=== PATIENT | male | born 1960 | race Caucasian/White ===

== ENCOUNTER 2019-06-14 15:00 | Emergency (ER) | payer BC, OTHER ==
[~2019-06-14] VITALS: Ht 172 cm; Wt 104.3 kg
[2019-06-14] MEDS ORDERED: NS IV 1000 ML 1,000 ML IV SCH (15:30)
[2019-06-14] MEDS ORDERED: meTOprolol 5 MG/5 ML (LOPRESSOR) VIAL IV ONE (15:30)
--- NOTE | 2019-06-14 15:34 | ED GI ---
General Chief Complaint: Abdominal/GI Problems Stated Complaint: GROIN PAIN Nursing Triage Note: has pain in L testicle that goes up into the L side of his groin Sepsis Screen: No Definite Risk Source of Information: Patient Exam Limitations: No Limitations History of Present Illness Date Seen by Provider: Jun 14, 2019 Time Seen by Provider: 15:33 Initial Comments To ER with pain in left testicle he goes up the left side of his groin since Tuesday after moving some equipment. He is concerned he may have a hernia. No dysuria. No chest pain no shortness of breath no fever no chills, hasn't seen a doctor in "20 years". His heart rate is 157 narrow complex on arrival. Timing/Duration: 1-2 Days Severity/Quality: Moderate Location: [facility] Radiation: No Radiation Activities at Onset: None Associated Symptoms: Denies Symptoms Allergies and Home Medications Allergies Coded Allergies: No Known Drug Allergies (Unverified , 06/14/19) Patient Home Medication List Home Medication List Reviewed: Yes Review of Systems Review of Systems Constitutional: see HPI EENTM: No Symptoms Reported Respiratory: No Symptoms Reported Cardiovascular: No Symptoms Reported Gastrointestinal: See HPI, Abdominal Pain; Denies Constipated, Denies Diarrhea, Denies Nausea Musculoskeletal: no symptoms reported Skin: no symptoms reported Psychiatric/Neurological: No Symptoms Reported Endocrine: No Symptoms Reported Hematologic/Lymphatic: No Symptoms Reported Past Qraunmb-Cxcejq-Vgqbqh Hx Patient Social History Alcohol Use: Denies Use Recreational Drug Use: No 2nd Hand Smoke Exposure: No Recent Foreign Travel: No Contact w/Someone Who Travel: No Recent Infectious Disease Expo: No Recent Hopitalizations: No Immunizations Up To Date Tetanus Booster (TDap): Unknown Seasonal Allergies Seasonal Allergies: No Past Medical History Surgeries: No Respiratory: No Cardiac: No Neurological: No Genitourinary: No Gastrointestinal: No Musculoskeletal: No Endocrine: No HEENT: No Cancer: No Psychosocial: No Integumentary: No Blood Disorders: No Physical Exam Vital Signs Vital Signs - First Documented 06/14/19 15:10 Temp 36.9 Pulse 154 Resp 18 B/P (MAP) 158/102 (120) Capillary Refill : Less Than 3 Seconds Height/Weight/BMI Height: '" Weight: lbs. oz. kg; 35.00 BMI Method: General Appearance: WD/WN, no apparent distress, other (no distress alert and oriented talks in full sentences pleasant) HEENT: PERRL/EOMI, normal ENT inspection Respiratory: normal breath sounds, no respiratory distress, no accessory muscle use Cardiovascular: tachycardia Gastrointestinal: normal bowel sounds, non tender, soft Extremities: normal range of motion, non-tender Neurologic/Psychiatric: alert, normal mood/affect, oriented x 3 Skin: normal color, warm/dry Progress/Results/Core Measures Results/Orders Lab Results Laboratory Tests Test 06/14/19 15:25 06/14/19 15:28 Range/Units White Blood Count 10.2 4.3-11.0 10^3/uL Red Blood Count 5.69 4.35-5.85 10^6/uL Hemoglobin 17.4 13.3-17.7 G/DL Hematocrit 50 40-54 % Mean Corpuscular Volume 88 80-99 FL Mean Corpuscular Hemoglobin 31 25-34 PG Mean Corpuscular Hemoglobin Concent 35 32-36 G/DL Red Cell Distribution Width 13.7 10.0-14.5 % Platelet Count 222 130-400 10^3/uL Mean Platelet Volume 9.9 7.4-10.4 FL Neutrophils (%) (Auto) 68 42-75 % Lymphocytes (%) (Auto) 22 12-44 % Monocytes (%) (Auto) 9 0-12 % Eosinophils (%) (Auto) 1 0-10 % Basophils (%) (Auto) 0 0-10 % Neutrophils # (Auto) 6.9 1.8-7.8 X 10^3 Lymphocytes # (Auto) 2.2 1.0-4.0 X 10^3 Monocytes # (Auto) 0.9 0.0-1.0 X 10^3 Eosinophils # (Auto) 0.1 0.0-0.3 10^3/uL Basophils # (Auto) 0.0 0.0-0.1 10^3/uL Sodium Level 139 135-145 MMOL/L Potassium Level 4.0 3.6-5.0 MMOL/L Chloride Level 104 98-107 MMOL/L Carbon Dioxide Level 24 21-32 MMOL/L Anion Gap 11 5-14 MMOL/L Blood Urea Nitrogen 14 7-18 MG/DL Creatinine 0.96 0.60-1.30 MG/DL Estimat Glomerular Filtration Rate > 60 BUN/Creatinine Ratio 15 Glucose Level 109 H 70-105 MG/DL Calcium Level 9.8 8.5-10.1 MG/DL Corrected Calcium 8.5-10.1 MG/DL Magnesium Level 1.9 1.6-2.4 MG/DL Total Bilirubin 1.2 H 0.1-1.0 MG/DL Aspartate Amino Transf (AST/SGOT) 46 H 5-34 U/L Alanine Aminotransferase (ALT/SGPT) 48 0-55 U/L Alkaline Phosphatase 69 40-136 U/L Troponin I < 0.028 <0.028 NG/ML B-Type Natriuretic Peptide 13.6 <100.0 PG/ML Total Protein 7.8 6.4-8.2 GM/DL Albumin 4.8 H 3.2-4.5 GM/DL Urine Color YELLOW Urine Clarity CLEAR Urine pH 5.5 5-9 Urine Specific [place] >=1.030 1.016-1.022 Urine Protein NEGATIVE NEGATIVE Urine Glucose (UA) NEGATIVE NEGATIVE Urine Ketones NEGATIVE NEGATIVE Urine Nitrite NEGATIVE NEGATIVE Urine Bilirubin NEGATIVE NEGATIVE Urine Urobilinogen 0.2 < = 1.0 MG/DL Urine Leukocyte Esterase NEGATIVE NEGATIVE Urine RBC (Auto) NEGATIVE NEGATIVE Urine RBC NONE /HPF Urine WBC 0-2 /HPF Urine Crystals PRESENT H /LPF Urine Amorphous Sediment FEW JENARO URATES H /LPF Urine Bacteria TRACE /HPF Urine Casts PRESENT /LPF Urine Hyaline Casts 0-2 H /LPF Urine Mucus NEGATIVE /LPF Urine Culture Indicated NO My Orders Orders - CIELO VILLANUEVA APRN Ua Culture If Indicated (06/14/19 15:22) Us Scrotum (Testicle) [id number] (06/14/19 15:22) Cbc With Automated Diff (06/14/19 15:29) Comprehensive Metabolic Panel (06/14/19 15:29) BNP (06/14/19 15:29) Troponin I (06/14/19 15:29) Magnesium (06/14/19 15:29) Ct Angio Chest W (06/14/19 15:29) Ct Abd/Pelvis Wo(Kidney Stone) (06/14/19 15:29) Metoprolol Tartrate Injection (Lopressor (06/14/19 15:30) Ns Iv 1000 Ml (Sodium Chloride 0.9%) (06/14/19 15:30) Ekg Tracing (06/14/19 15:31) Ekg Tracing (06/14/19 16:02) Iohexol Injection (Omnipaque 350 Mg/Ml 1 (06/14/19 16:15) Received Contrast (Hold Metformin- Contr (06/14/19 16:15) Sodium Chloride Flush (Catheter Flush Sy (06/14/19 16:15) Ns (Ivpb) (Sodium Chloride 0.9% Ivpb Bag (06/14/19 16:15) Medications Given in ED Current Medications Medications Dose Ordered Sig/Hector Route Start Time Stop Time Status Last Admin Dose Admin Iohexol 100 ml ONCE ONCE IV 06/14/19 16:15 06/14/19 16:16 DC 06/14/19 16:43 83 ML Metoprolol Tartrate 5 mg ONCE ONCE IV 06/14/19 15:30 06/14/19 15:32 DC 06/14/19 15:36 5 MG Sodium Chloride 10 ml NEEDED PRN IV 06/14/19 16:15 06/14/19 16:43 10 ML Sodium Chloride 100 ml ONCE ONCE IV 06/14/19 16:15 06/14/19 16:16 DC 06/14/19 16:43 80 ML Vital Signs/I&O 06/14/19 15:10 Temp 36.9 Pulse 154 Resp 18 B/P (MAP) 158/102 (120) Blood Pressure Mean: 120 Diagnostic Imaging Diagonstic Imaging: Xray Plain Films/CT/US/NM/MRI: chest Comments NAME: ARCHIE SUE [facility] REC#: [id number] PT STATUS: REG ER : 1960 PHYSICIAN: CIELO VILLANUEVA APRN ADMIT DATE: 06/14/19/ER Draft Date of Exam:06/14/19 US SCROTUM (Testicle) [id number] PROCEDURE: US Scrotum. TECHNIQUE: Multiple real-time grayscale images were obtained over the scrotum in various projections bilaterally. INDICATION: Testicular pain. COMPARISON: None. FINDINGS: Normal echogenicity and flow by color Doppler at both testicles. No mass or fluid collections. The right testicle measures 3.9 x 2.0 x 2.9 cm. The left testicle measures 4.1 x 1.8 x 2.5 cm. No hydrocele or varicoceles. The epididymis is unremarkable bilaterally. IMPRESSION: Unremarkable testicular ultrasound. Dictated on workstation # [id number] Dict: 06/14/19 1638 Trans: 06/14/198 [facility] [id number] Interpreted by: HYUN ALEGRE MD Electronically signed by: NAME: ARCHIE SUE [facility] REC#: [id number] PT STATUS: REG ER : 1960 PHYSICIAN: CIELO VILLANUEVA APRN ADMIT DATE: 06/14/19/ER Draft Date of Exam:06/14/19 CT ANGIO CHEST W EXAMINATION: CT angiography of the chest. TECHNIQUE: Contrast enhanced thin section helical images were obtained through the chest with intravenous contrast timed for the optimal opacification of the arterial structures per CTA protocol. Post-processing, reconstructions and interpretation of angiographic images of the vessels was performed. 3D MIP reconstructions were performed and reviewed. All CT scans use one or more of the following dose optimizing techniques: automated exposure control, MA and/or KvP adjustment based on a patient size and exam type, or iterative reconstruction. HISTORY: Tachycardia. COMPARISON: None available. FINDINGS: There is no pulmonary embolism. There is no edema or pneumonia. No pleural effusion. No pneumothorax. No suspicious nodules. Hazy appearance to the lungs is related to expiratory phase of imaging. Heart size is normal. There are mild coronary artery calcifications. No pericardial effusion. Aorta is normal in caliber. There is no axillary or supraclavicular lymphadenopathy. There is no mediastinal lymphadenopathy. Limited views of the upper abdomen are unremarkable. There are no suspicious osseus lesions. IMPRESSION: 1. No pulmonary embolism. Dictated on workstation # [id number] Dict: 06/14/19 1647 Trans: 06/14/19 1653 [facility] [id number] Interpreted by: ANIA MIKE MD Electronically signed by: NAME: ARCHIE SUE [facility] REC#: [id number] PT STATUS: REG ER : 1960 PHYSICIAN: CIELO VILLANUEVA APRN ADMIT DATE: 06/14/19/ER Draft Date of Exam:06/14/19 CT ABD/PELVIS WO(KIDNEY STONE) EXAMINATION: CT Abdomen Pelvis without contrast. TECHNIQUE: Multiple contiguous axial images were obtained through the abdomen and pelvis without the use of intravenous contrast. All CT scans use one or more of the following dose optimizing techniques: automated exposure control, MA and/or KvP adjustment based on a patient size and exam type, or iterative reconstruction. HISTORY: Left-sided groin pain COMPARISON: None available. FINDINGS: Limited views of the lower thorax are unremarkable. The liver is normal without focal lesion. There is no biliary ductal dilation. Gallbladder is normal. Pancreas is normal. Spleen is normal. Adrenal glands are normal. The kidneys are normal. There is no hydronephrosis. Urinary bladder is normal. No renal or ureteral stones are seen. There are phleboliths in the pelvis. There is some mild nonspecific retroperitoneal stranding. There is a fat-containing left inguinal hernia. There is mild stranding within the hernia. There is a fat-containing umbilical hernia as well. Visualized bowel is normal in caliber without obstruction or inflammation. No free fluid or air. No abdominal or pelvic lymphadenopathy. Aorta is normal in caliber without aneurysm. There are no suspicious osseus lesions. IMPRESSION: 1. No renal or ureteral stones. 2. Fat-containing left inguinal hernia with stranding of the herniated fat which may represent strangulation. Dictated on workstation # [id number] Dict: 06/14/19 1650 Trans: 06/14/19 165 [facility] [id number] Interpreted by: ANIA MIKE MD Electronically signed by: Departure Communication (Admissions) Family Conversation 1700- spoke with Dr. Alvarado regarding tachycardia, patient has remained normal sinus after the Lopressor, he believe this to be either a atrial flutter or reentrant tachycardia. He would recommend low-dose metoprolol, follow-up in the clinic with him when possible though they are not seeing any outpatients currently because of COVID concerns. I'll put him on Toprol-XL. I also spoke with Dr. Hardy about the findings on CT of fat-containing inguinal hernia with question was granulation. Unlikely strangulation as he is minimally tender to palpation left inguinal region. No specific treatment other than pain control, Dr. Hardy will follow up in about 4-6 weeks with the patient in the clinic. He should return sooner for any concerning symptoms like fevers or intolerable pain or failure to have a bowel movement or passed gas. Patient had a narrow complex tachycardia rate of 157 upon arrival to the room. He denied shortness of breath or chest pain. He then stood up to provide a urine sample and heart rate dropped to 105 sinus without ectopy. He then jumped back up to 165 narrow complex regular. He is hypertensive, 5 mg of Lopressor was given IV, he converted down to heart rate of 85 sinus no ectopy. Impression Primary Impression: fat-containing inguinal hernia Additional Impression: Tachycardia Disposition: 01 HOME, SELF-CARE Condition: Stable Departure-Patient Inst. Decision time for Depature: 17:02 Referrals: NAREN HARDY BASHAR J MD Patient Instructions: Groin Hernia (DC) Add. Discharge Instructions: 1. Your hernia contains only fat but it is inflamed because of the recent herniation likely when he was carrying a heavy object last week. Return to ER for any intolerable pain, fevers, unable to have bowel movement or other concerns. Call Dr. Alvarado for an appointment for follow-up whenever they can see you which may be several weeks. In the meantime take the medication as directed. All discharge instructions reviewed with patient and/or family. Voiced understanding. Scripts Docusate Sodium (Colace) 100 Mg Capsule 100 MG PO DAILY, #14 CAP Prov: CIELO VILLANUEVA APRN 06/14/19 Metoprolol Succinate (Toprol Xl) 50 Mg Tab.er.24h 50 MG PO DAILY, #30 TAB 2 Refills Prov: CIELO VILLANEUVA APRN 06/14/19 CIELO VILLANUEVA APRN Jun 14, 2019 15:34
[2019-06-14 15:35] LABS: BASOPHILS % (AUTO) 0 % (0-10); EOSINOPHILS # (AUTO) 0.1 10^3/uL (0.0-0.3); EOSINOPHILS % (AUTO) 1 % (0-10); HEMATOCRIT 50 % (40-54); HEMOGLOBIN 17.4 G/DL (13.3-17.7); LYMPHOCYTES # (AUTO) 2.2 X 10^3 (1.0-4.0); LYMPHOCYTES % (AUTO) 22 % (12-44); MEAN CORPUSCULAR HEMOGLOBIN 31 PG (25-34); MEAN CORPUSCULAR HGB CONC 35 G/DL (32-36); MEAN CORPUSCULAR VOLUME 88 FL (80-99); MEAN PLATELET VOLUME 9.9 FL (7.4-10.4); MONOCYTES # (AUTO) 0.9 X 10^3 (0.0-1.0); MONOCYTES % (AUTO) 9 % (0-12); NEUTROPHILS # (AUTO) 6.9 X 10^3 (1.8-7.8); NEUTROPHILS % (AUTO) 68 % (42-75); PLATELET COUNT 222 10^3/uL (130-400); RED CELL DISTRIBUTION WIDTH 13.7 % (10.0-14.5); WHITE BLOOD COUNT 10.2 10^3/uL (4.3-11.0)
[2019-06-14 15:35] LABS: BILIRUBIN,URINE NEGATIVE (NEGATIVE); CLARITY,URINE CLEAR; COLOR,URINE YELLOW; GLUCOSE, URINE (UA) NEGATIVE (NEGATIVE); KETONES,URINE NEGATIVE (NEGATIVE); LEUKOCYTE ESTERASE ,URINE NEGATIVE (NEGATIVE); NITRITE,URINE NEGATIVE (NEGATIVE); PH,URINE 5.5 (5-9); PROTEIN,URINE NEGATIVE (NEGATIVE)
[2019-06-14 15:51] LABS: ALANINE AMINOTRANSFERASE 48 U/L (0-55); ALBUMIN 4.8 GM/DL (3.2-4.5); ALKALINE PHOSPHATASE 69 U/L (40-136); BILIRUBIN,TOTAL 1.2 MG/DL (0.1-1.0); BUN/CREATININE RATIO 15; CALCIUM 9.8 MG/DL (8.5-10.1); CARBON DIOXIDE 24 MMOL/L (21-32); CHLORIDE 104 MMOL/L (98-107); CREATININE SERUM 0.96 MG/DL (0.60-1.30); GFR ESTIMATED > 60; GLUCOSE 109 MG/DL (70-105); MAGNESIUM 1.9 MG/DL (1.6-2.4); SODIUM 139 MMOL/L (135-145); TOTAL PROTEIN 7.8 GM/DL (6.4-8.2)
[2019-06-14 16:03] LABS: AMORPHOUS SEDIMENT,UR FEW AMOR URATES /LPF; BACTERIA,URINE TRACE /HPF; WBC,URINE 0-2 /HPF
[2019-06-14 16:04] LABS: HYALINE CASTS, URINE 0-2 /LPF
[2019-06-14] MEDS ORDERED: HOLD METFORMIN - RECEIVED CONTRAST 20 ML VIAL IV SCH (16:15)
[2019-06-14] MEDS ORDERED: CATHETER FLUSH 10 ML SYR IV PRN (16:15)
[2019-06-14] MEDS ORDERED: NS 100 ML (IVPB) BAG IV ONE (16:15)
[2019-06-14] MEDS ORDERED: IOHEXOL 350 MG/ML 100 ML (OMNIPAQUE 350) VIAL IV ONE (16:15)
--- NOTE | 2019-06-14 16:48 | Diagnostic Imaging Report ---
PROCEDURE: US Scrotum. TECHNIQUE: Multiple real-time grayscale images were obtained over the scrotum in various projections bilaterally. INDICATION: Testicular pain. COMPARISON: None. FINDINGS: Normal echogenicity and flow by color Doppler at both testicles. No mass or fluid collections. The right testicle measures 3.9 x 2.0 x 2.9 cm. The left testicle measures 4.1 x 1.8 x 2.5 cm. No hydrocele or varicoceles. The epididymis is unremarkable bilaterally. IMPRESSION: Unremarkable testicular ultrasound. Dictated by: Dictated on workstation # [id number]
--- NOTE | 2019-06-14 16:53 | Diagnostic Imaging Report ---
EXAMINATION: CT angiography of the chest. TECHNIQUE: Contrast enhanced thin section helical images were obtained through the chest with intravenous contrast timed for the optimal opacification of the arterial structures per CTA protocol. Post-processing, reconstructions and interpretation of angiographic images of the vessels was performed. 3D MIP reconstructions were performed and reviewed. All CT scans use one or more of the following dose optimizing techniques: automated exposure control, MA and/or KvP adjustment based on a patient size and exam type, or iterative reconstruction. HISTORY: Tachycardia. COMPARISON: None available. FINDINGS: There is no pulmonary embolism. There is no edema or pneumonia. No pleural effusion. No pneumothorax. No suspicious nodules. Hazy appearance to the lungs is related to expiratory phase of imaging. Heart size is normal. There are mild coronary artery calcifications. No pericardial effusion. Aorta is normal in caliber. There is no axillary or supraclavicular lymphadenopathy. There is no mediastinal lymphadenopathy. Limited views of the upper abdomen are unremarkable. There are no suspicious osseus lesions. IMPRESSION: 1. No pulmonary embolism. Dictated by: Dictated on workstation # [id number]
--- NOTE | 2019-06-14 16:54 | Diagnostic Imaging Report ---
EXAMINATION: CT Abdomen Pelvis without contrast. TECHNIQUE: Multiple contiguous axial images were obtained through the abdomen and pelvis without the use of intravenous contrast. All CT scans use one or more of the following dose optimizing techniques: automated exposure control, MA and/or KvP adjustment based on a patient size and exam type, or iterative reconstruction. HISTORY: Left-sided groin pain COMPARISON: None available. FINDINGS: Limited views of the lower thorax are unremarkable. The liver is normal without focal lesion. There is no biliary ductal dilation. Gallbladder is normal. Pancreas is normal. Spleen is normal. Adrenal glands are normal. The kidneys are normal. There is no hydronephrosis. Urinary bladder is normal. No renal or ureteral stones are seen. There are phleboliths in the pelvis. There is some mild nonspecific retroperitoneal stranding. There is a fat-containing left inguinal hernia. There is mild stranding within the hernia. There is a fat-containing umbilical hernia as well. Visualized bowel is normal in caliber without obstruction or inflammation. No free fluid or air. No abdominal or pelvic lymphadenopathy. Aorta is normal in caliber without aneurysm. There are no suspicious osseus lesions. IMPRESSION: 1. No renal or ureteral stones. 2. Fat-containing left inguinal hernia with stranding of the herniated fat which may represent strangulation. Dictated by: Dictated on workstation # [id number]
[2019-06-14] MEDS ORDERED: HYDR-4226 PO (17:14)
[2019-06-14] MEDS ORDERED: METO-352 PO (17:14)
[2019-06-14] MEDS ORDERED: DOCU-143 PO (17:14)
[2019-06-14 17:25] VITALS: BP 153/115
--- OUTSIDE RECORDS SUMMARY | 2019-06-14 17:59 | XMS REPORT ---
Author Author Golden BENAVIDES [facility] eClinicalWorks Address Unknown Phone Unavailable Care Team Providers Care Giver Name Role Phone RUPAL BENAVIDES CP Unavailable Allergies, Adverse Reactions, Alerts Substance Reaction Event Type N.K.D.A. Info Not Available Non Drug Allergy Problems Problem Type Condition Code Onset Dates Condition Statu s Assessment Physical exam Z00.00 Active Assessment Encounter for PPD test Z11.1 Activ e Medications No Known Medications Procedures Procedure Coding System Code Date COMPREHEN METABOLIC PANEL CPT-4 76608 Feb LIPID PANEL CPT-4 88441 Mar 18, 2015 COMPLETE CBC W/AUTO DIFF WBC CPT-4 13451 Mar 18, 2015 Preventive Care New Pt. Age 40-64 CPT-4 16758 Mar 18, 2015 ASSAY THYROID STIM HORMONE CPT-4 99201 Feb 262014 VENIPUNCT, ROUTINE* CPT-4 85398 Mar 18, 2015 Vital Signs Date/Time: Mar 18, 2015 Temperature 98.5 F Weight 244.3 lbs Height 70.1 in BMI 34.95 Index Blood Pressure Diastolic 84 mmHg Blood Pressure Systolic 138 mmHg Cardiac Monitoring Heart Rate 88 bpm Results Name Result Date Reference Range Unit Abnormali ty Flag CBC ----Lymphs 31 88358351 % ----Neutrophils 57 57345535 % ----Baso (Absolute) 0.0 20150318 0.0-0.2 x10E3/uL ----Hemoglobin 17.2 20150318 12.6-17.7 g/dL ----Eos (Absolute) 0.1 00932499 0.0-0.4 x10E3/uL ----Hematocrit 49.7 20150318 37.5-51.0 % ----Monocytes(Absolute) 0.7 44709879 0.1-0.9 x10E3/uL ----MCV 89 14395579 79-97 fL ----Lymphs (Absolute) 1.9 40841032 0.7-3.1 x10E3/uL ----MCH 30.9 77891789 26.6-33.0 pg ----Neutrophils (Absolute) 3.4 75079083 1.4-7.0 x10E3/uL ----MCHC 34.6 10600795 31.5-35.7 g/dL ----Immature Granulocytes 0 80886997 % ----Basos 0 69836859 % ----RDW 13.6 44926474 12.3-15.4 % ----Immature Grans (Abs) 0.0 30763441 0.0-0.1 x10E3/uL ----WBC 6.1 26929774 3.4-10.8 x10E3/uL ----Platelets 223 12082208 150-379 x10E3/uL ----Eos 1 15663922 % ----RBC 5.56 24009993 4.14-5.80 x10E6/uL ----Monocytes 11 87036336 % LIPID PANEL ----LDL Cholesterol Calc 151 35121243 0-99 mg/dL H ----VLDL Cholesterol Jacques 25 08792059 5-40 mg/dL ----Cholesterol, Total 220 72882231 100-199 mg/dL H ----HDL Cholesterol 44 21492735 >39 mg/dL ----Triglycerides 125 32140114 0-149 mg/dL ROUTINE VENIPUNCTURE TSH ----TSH 2.460 61083940 0.450-4.500 uIU/mL CMP ----Potassium, Serum 4.5 12822971 3.5-5.2 mmol/L ----Sodium, Serum 140 22084593 134-144 mmol/L ----BUN/Creatinine Ratio 20 08821232 9-20 ----eGFR If Africn Am 113 09631488 >59 mL/min/1.73 ----eGFR If NonAfricn Am 98 74506903 >59 mL/min/1.73 ----Creatinine, Serum 0.88 35070035 0.76-1.27 mg/dL ----BUN 18 98224040 6-24 mg/dL ----Glucose, Serum 111 94113704 65-99 mg/dL H ----AST (SGOT) 25 20150318 0-40 IU/L ----Globulin, Total 2.5 20150318 1.5-4.5 g/dL ----ALT (SGPT) 35 20150318 0-44 IU/L ----A/G Ratio 1.9 20150318 1.1-2.5 ----Bilirubin, Total 0.9 20150318 0.0-1.2 mg/dL ----Alkaline Phosphatase, S 70 20150318 39-117 IU/L ----Carbon Dioxide, Total 25 20150318 18-29 mmol/L ----Calcium, Serum 9.7 20150318 8.7-10.2 mg/dL ----Protein, Total, Serum 7.3 20150318 6.0-8.5 g/dL ----Albumin, Serum 4.8 20150318 3.5-5.5 g/dL ----Chloride, Serum 100 20150318 97-108 mmol/L Summary Purpose eClinicalWorks Submission
--- OUTSIDE RECORDS SUMMARY | 2019-06-14 17:59 | XMS REPORT ---
Author Author Golden BENAVIDES [facility] eClinicalWorks Address Unknown Phone Unavailable Care Team Providers Care Cell Coverer Name Role Phone RUPAL BENAVIDES CP Unavailable Allergies No Known Allergies Problems Problem Type Condition Code Onset Dates Condition Statu s Assessment Elevated blood sugar R73.09 Active Medications No Known Medications Results No Known Results Summary Purpose eClinicalWorks Submission
--- OUTSIDE RECORDS SUMMARY | 2019-06-14 17:59 | XMS REPORT | Continuity of Care Document ---
Demographics Preferred Language Unknown Marital Status Unknown Congregational Affiliation Unknown Race Unknown Ethnic Group Unknown Author Organization Unknown Address Unknown Phone Unavailable Allergies There is no data. Medications There is no data. Problems There is no data. Procedures There is no data. Results Test Result Range Complete blood count (CBC) with automate d white blood cell (WBC) differential - 06/14/19 15:25 Blood leukocytes automated count (number/volume) 10.2 10*3/uL 4.3-11.0 Blood erythrocytes automated count (number/volume) 5.69 10*6/uL 4.35-5.85 Venous blood hemoglobin measurement (mass/volume) 17.4 g/dL 13.3-17.7 Blood hematocrit (volume fraction) 50 % 40-54 Automated erythrocyte mean corpuscular volume 88 [ foz_us] 80-99 Automated erythrocyte mean corpuscular h emoglobin (mass per erythrocyte) 31 pg 25-34 Automated erythrocyte mean corpuscular h emoglobin concentration measurement (mass/volume) 35 g/dL 32-36 Automated erythrocyte distribution width ratio 13. 7 % 10.0- 14.5 Automated blood platelet count (count/volume) 222 10*3/uL 130-400 Automated blood platelet mean volume measurement 9.9 [foz_us] 7.4-10.4 Automated blood neutrophils/100 leukocytes 68 % 42-75 Automated blood lymphocytes/100 leukocytes 22 % 12-44 Blood monocytes/100 leukocytes 9 % 0-12 Automated blood eosinophils/100 leukocytes 1 % 0-10 Automated blood basophils/100 leukocytes 0 % 0-10 Blood neutrophils automated count (number/volume) 6.9 10*3 1.8-7.8 Blood lymphocytes automated count (number/volume) 2.2 10*3 1.0-4.0 Blood monocytes automated count (number/volume) 0. 9 10*3 0.0-1.0 Automated eosinophil count 0.1 10*3/uL 0 .0-0.3 Automated blood basophil count (count/volume) 0.0 10*3/uL 0.0-0.1 Comprehensive metabolic panel - 06/14/19 15:25 Serum or plasma sodium measurement (moles/volume) 139 mmol/L 135-145 Serum or plasma potassium measurement (moles/volume) 4.0 mmol/L 3.6-5.0 Serum or plasma chloride measurement (moles/volume) 104 mmol/L 98-107 Carbon dioxide 24 mmol/L 21-32 Serum or plasma anion gap determination (moles/volume) 11 mmol/L 5-14 Serum or plasma urea nitrogen measurement (mass/volume ) 14 mg/dL 7-18 Serum or plasma creatinine measurement (mass/volume) 0.96 mg/dL 0.60-1.30 Serum or plasma urea nitrogen/creatinine mass ratio 15 NRG Serum or plasma creatinine measurement w ith calculation of estimated glomerular filtration rate > NRG Serum or plasma glucose measurement (mass/volume) 109 mg/dL 70-105 Serum or plasma calcium measurement (mass/volume) 9.8 mg/dL 8.5-10.1 Serum or plasma total bilirubin measurement (mass/volu me) 1.2 mg/dL 0.1-1.0 Serum or plasma alkaline phosphatase elio surement (enzymatic activity/volume) 69 U/L 40-136 Serum or plasma aspartate aminotransfera se measurement (enzymatic activity/volume) 46 U/L 5-34 Serum or plasma alanine aminotransferase measurement (enzymatic activity/volume) 48 U/L 0-55 Serum or plasma protein measurement (mass/volume) 7.8 g/dL 6.4-8.2 Serum or plasma albumin measurement (mass/volume) 4.8 g/dL 3.2-4.5 Magnesium - 06/14/19 15:25 Magnesium 1.9 mg/dL 1.6-2.4 Serum or plasma troponin i.cardiac measu rement (mass/volume) - 06/14/19 15:25 Serum or plasma troponin i.cardiac measurement (mass/v olume) < ng/mL <0.028 Serum or plasma lithium measurement (mol es/volume) - 06/14/19 15:25 BNP PT 13.6 pg/mL <100.0 Complete urinalysis with reflex to cultu re - 06/14/19 15:28 Urine color determination YELLOW NRG Urine clarity determination CLEAR NR G Urine pH measurement by test strip 5.5 5-9 Specific gravity of urine by test strip >= 1.016-1.022 Urine protein assay by test strip, semi-quantitative NEGATIVE NEGATIVE Urine glucose detection by automated test strip NE GATIVE NEGATIVE Erythrocytes detection in urine sediment by light micr oscopy NEGATIVE NEGATIVE Urine ketones detection by automated test strip NE GATIVE NEGATIVE Urine nitrite detection by test strip NEGATIVE NEGATIVE Urine total bilirubin detection by test strip NEGA TIVE NEGATIVE Urine urobilinogen measurement by automated test strip (mass/volume) 0.2 mg/dL < = 1.0 Urine leukocyte esterase detection by dipstick NEG ATIVE NEGATIVE Automated urine sediment erythrocyte cou nt by microscopy (number/high power field) NONE NRG Automated urine sediment leukocyte count by microscopy (number/high power field) [HPF] NRG Bacteria detection in urine sediment by light microsco py TRACE NRG Crystals detection in urine sediment by light microsco py PRESENT NRG Casts detection in urine sediment by light microscopy PRESENT NRG Mucus detection in urine sediment by light microscopy NEGATIVE NRG Complete urinalysis with reflex to culture NO NRG Amorphous sediment detection in urine sediment by ligh t microscopy FEW JENARO URATES NRG Hyaline casts detection in urine sediment by light chrissie roscopy 0-2 NRG Encounters ACCT No. Visit Date/Time Discharge Status Pt. Type Provider Facility Loc./Unit Complaint [id number] 06/14/2019 15:36:00 Document Registration
== END 2019-06-14 17:25 | disposition home or self-care (01) ==
LOC: EDUNIT# 15:00 → ER 15:01
DX: K40.90 Unilateral inguinal hernia, without obstruction or gangrene, not specified as recurrent (principal); R00.0 Tachycardia, unspecified
CPT/HCPCS: 36415; 71275; 74176; 76870; 80053; 81000; 83735; 83880; 84484; 85025; 85027; 93005; 96361; 96374

== ENCOUNTER → 2019-09-13 | Outpatient (CLI) | payer BC ==
[~2019-09-13] MED LIST: DOCU-143 PO; HYDR-4226 PO; METO-352 PO
== END ==
LOC: CARD 09:51
PROVIDERS: ATTEND Internal Medicine Cardiovascular Disease
DX: I10 Essential (primary) hypertension (principal); E66.9 Obesity, unspecified
CPT/HCPCS: 93306

== ENCOUNTER 2020-07-09 12:13 | Emergency (ER) | payer BC ==
[~2020-07-09] VITALS: Ht 170.1 cm; Wt 111.5 kg
[2020-07-09] MEDS ORDERED: ONDANSETRON 4 MG (ZOFRAN) ORAL DISSOLVE TAB SL ONE (12:30)
[2020-07-09] MEDS ORDERED: MECLIZINE 25 MG (ANTIVERT) TAB PO ONE (12:30)
[2020-07-09] MEDS ORDERED: ONDA4TAB11 SL (13:27)
[2020-07-09] MEDS ORDERED: MECL-149 PO (13:27)
--- NOTE | 2020-07-09 13:27 | ED Neurological Problem ---
General Chief Complaint: Dizziness/Syncope Stated Complaint: DIZZINESS Nursing Triage Note: Pt ambulatory into ER with complaint of dizziness x2 days. Pt states that sitting up makes it worse, and moving head side to side does as well. Pt denies vomiting. Pt denies trauma. Pt states that this happened about 20 years ago and it was a bad inner ear infection. Nursing Sepsis Screen: No Definite Risk Source: patient Exam Limitations: no limitations History of Present Illness Date Seen by Provider: Jul 09, 2020 Time Seen by Provider: 12:20 Initial Comments This 60-year-old gentleman presents to the emergency room with complaints of 2 days of vertiginous dizziness. It is triggered by head movements and especially by bending forward. He has not experienced any vomiting. He does have trouble standing and walking when dizziness is more severe. The vertigo is fatigable and resolves if he stays still. He denies any recent illnesses. He denies drug or alcohol abuse. He has a small patch of paresthesia on the anterior portion of his right thigh present for 4 days. He denies any other neurologic deficits. Allergies and Home Medications Allergies Coded Allergies: No Known Drug Allergies (Unverified , 06/14/19) Home Medications Docusate Sodium 100 Mg Capsule, 100 MG PO DAILY Prescribed by: CIELO VILLANUEVA on 06/14/19 171 Hydrocodone/Acetaminophen 1 Each Tablet, 1 TAB PO Q4-6HR Prescribed by: CIELO VILLANUEVA on 06/14/19 1715 Meclizine HCl 25 Mg Tablet, 25 MG PO Q8H PRN for DIZZINESS Prescribed by: MAJO TROY on 07/09/20 1327 Metoprolol Succinate 50 Mg Tab.er.24h, 50 MG PO DAILY Prescribed by: CIELO VILLANUEVA on 06/14/19 1714 Ondansetron 4 Mg Tab.rapdis, 4 MG SL Q4H PRN for NAUSEA/VOMITING Prescribed by: MAJO TROY on 07/09/20 1327 Patient Home Medication List Home Medication List Reviewed: Yes Review of Systems Review of Systems Constitutional: no symptoms reported Eyes: No Symptoms Reported Ears, Nose, Mouth, Throat: no symptoms reported Respiratory: no symptoms reported Cardiovascular: no symptoms reported Gastrointestinal: no symptoms reported Genitourinary: no symptoms reported Musculoskeletal: no symptoms reported Skin: no symptoms reported Psychiatric/Neurological: See HPI Endocrine: No Symptoms Reported Hematologic/Lymphatic: No Symptoms Reported Past Pyzohme-Nnpekk-Tmdvsd Hx Past Med/Social Hx: Reviewed Nursing Past Med/Soc Hx Patient Social History Alcohol Use: Denies Use 2nd Hand Smoke Exposure: No Recent Infectious Disease Expo: No Recent Hopitalizations: No Immunizations Up To Date Tetanus Booster (TDap): Unknown PED Vaccines UTD: No Seasonal Allergies Seasonal Allergies: No Past Medical History Surgeries: No Respiratory: No Cardiac: No Neurological: No Genitourinary: No Gastrointestinal: No Musculoskeletal: No Endocrine: No HEENT: No Cancer: No Psychosocial: No Integumentary: No Blood Disorders: No Physical Exam Vital Signs Vital Signs - First Documented 07/09/20 12:20 Temp 36.7 Pulse 96 Resp 20 B/P (MAP) 167/101 (123) Pulse Ox 96 O2 Delivery Room Air Capillary Refill : Less Than 3 Seconds Height, Weight, BMI Height: '" Weight: lbs. oz. kg; 38.00 BMI Method: General Appearance: WD/WN, no apparent distress, obese HEENT: PERRL/EOMI, normal ENT inspection, TMs normal, pharynx normal Neck: normal inspection; No carotid bruit Respiratory: lungs clear, normal breath sounds, no respiratory distress Cardiovascular: regular rate, rhythm, no edema, no murmur, other (Sinus rhythm on the monitor) Gastrointestinal: normal bowel sounds, non tender, soft Extremities: normal inspection, no pedal edema Neurologic/Psychiatric: able bodied watchman II-XII nml as tested, alert, normal mood/affect, oriented x 3; No motor weakness; sensory deficit (Slight numbness on the right anterior thigh), other (Normal gait, normal xkegle-kp-ikxq and spvq-sv-hyip) Crainal Nerves: normal hearing, normal speech, PERRL Coordination/Gait: normal gait Motor/Sensory: no motor deficit, other (Slight numbness on the right anterior thigh) Skin: normal color, warm/dry Progress/Results/Core Measures Results/Orders Lab Results Laboratory Tests Test 07/09/20 14:15 07/09/20 14:19 Range/Units White Blood Count 7.1 4.3-11.0 10^3/uL Red Blood Count 4.99 4.30-5.52 10^6/uL Hemoglobin 15.6 13.3-17.7 g/dL Hematocrit 46 40-54 % Mean Corpuscular Volume 93 80-99 fL Mean Corpuscular Hemoglobin 31 25-34 pg Mean Corpuscular Hemoglobin Concent 34 32-36 g/dL Red Cell Distribution Width 13.2 10.0-14.5 % Platelet Count 205 130-400 10^3/uL Mean Platelet Volume 9.7 9.0-12.2 fL Immature Granulocyte % (Auto) 0 % Neutrophils (%) (Auto) 58 42-75 % Lymphocytes (%) (Auto) 31 12-44 % Monocytes (%) (Auto) 10 0-12 % Eosinophils (%) (Auto) 1 0-10 % Basophils (%) (Auto) 1 0-10 % Neutrophils # (Auto) 4.1 1.8-7.8 10^3/uL Lymphocytes # (Auto) 2.2 1.0-4.0 10^3/uL Monocytes # (Auto) 0.7 0.0-1.0 10^3/uL Eosinophils # (Auto) 0.1 0.0-0.3 10^3/uL Basophils # (Auto) 0.0 0.0-0.1 10^3/uL Immature Granulocyte # (Auto) 0.0 0.0-0.1 10^3/uL Sodium Level 140 135-145 MMOL/L Potassium Level 4.1 3.6-5.0 MMOL/L Chloride Level 103 98-107 MMOL/L Carbon Dioxide Level 28 21-32 MMOL/L Anion Gap 9 5-14 MMOL/L Blood Urea Nitrogen 13 7-18 MG/DL Creatinine 0.93 0.60-1.30 MG/DL Estimat Glomerular Filtration Rate > 60 BUN/Creatinine Ratio 14 Glucose Level 118 H 70-105 MG/DL Calcium Level 8.8 8.5-10.1 MG/DL Corrected Calcium 8.7 8.5-10.1 MG/DL Magnesium Level 2.1 1.6-2.4 MG/DL Total Bilirubin 1.3 H 0.1-1.0 MG/DL Aspartate Amino Transf (AST/SGOT) 25 5-34 U/L Alanine Aminotransferase (ALT/SGPT) 34 0-55 U/L Alkaline Phosphatase 67 40-136 U/L Total Protein 7.1 6.4-8.2 GM/DL Albumin 4.1 3.2-4.5 GM/DL Urine Color YELLOW Urine Clarity CLEAR Urine pH 7.5 5-9 Urine Specific [place] 1.015 L 1.016-1.022 Urine Protein NEGATIVE NEGATIVE Urine Glucose (UA) NEGATIVE NEGATIVE Urine Ketones NEGATIVE NEGATIVE Urine Nitrite NEGATIVE NEGATIVE Urine Bilirubin NEGATIVE NEGATIVE Urine Urobilinogen 2.0 < = 1.0 MG/DL Urine Leukocyte Esterase NEGATIVE NEGATIVE Urine RBC (Auto) NEGATIVE NEGATIVE Urine RBC NONE /HPF Urine WBC NONE /HPF Urine Squamous Epithelial Cells NONE /HPF Urine Crystals PRESENT H /LPF Urine Amorphous Sediment MOD JENARO PHOSPHATE H /LPF Urine Bacteria NEGATIVE /HPF Urine Casts NONE /LPF Urine Mucus NEGATIVE /LPF Urine Culture Indicated NO My Orders Orders - MAJO EMERY MD Ondansetron Oral Dissolve Tab (Zofran (07/09/20 12:30) Meclizine Tablet (Antivert Tablet) (07/09/20 12:30) Cbc With Automated Diff (07/09/20 14:08) Comprehensive Metabolic Panel (07/09/20 14:08) Magnesium (07/09/20 14:08) Ed Iv/Invasive Line Start (07/09/20 14:08) Monitor-Rhythm Ecg Trace Only (07/09/20 14:08) Ct Angio Head/Neck (07/09/20 14:08) Ct Lumbar Spine Wo (07/09/20 14:08) Ua Culture If Indicated (07/09/20 14:19) Iohexol Injection (Omnipaque 350 Mg/Ml 1 (07/09/20 15:00) Received Contrast (Hold Metformin- Contr (07/09/20 15:00) Sodium Chloride Flush (Catheter Flush Sy (07/09/20 15:00) Ns (Ivpb) (Sodium Chloride 0.9% Ivpb Bag (07/09/20 15:00) Medications Given in ED Vital Signs/I&O 07/09/20 07/09/20 12:20 16:00 Temp 36.7 Pulse 96 86 Resp 20 20 B/P (MAP) 167/101 (123) 124/78 Pulse Ox 96 96 O2 Delivery Room Air Room Air Blood Pressure Mean: 123 Progress Progress Note #1: Time: 13:22 Progress Note Patient was pretreated with Zofran and meclizine. Alia-Hallpike was positive to the right. This was converted into an Chriss maneuver. He had modest improvement in his symptoms after Chriss. Progress Note #2: Time: 14:10 Progress Note After Chriss maneuver patient reiterated his concern for right thigh numbness. He states this has been persistent and unchanged for the past 4 days. We discussed options for further evaluation. 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 He was offered CT angiogram and CT lumbar spine to evaluate this further. He elects to pursue these studies. Progress Note #3: Progress Note CT angiogram head and neck was unremarkable. Lumbar spine CT demonstrated stenosis and neuroforaminal stenosis which may correlate with the numbness in his thigh. Patient did have some rebound of vertigo but was able to tolerate it if he moved slowly and deliberately. He was given a handout with instructions to perform Chriss maneuver at home. Zofran and meclizine were prescribed. Patient was encouraged to obtain a primary care provider soon as possible. Diagnostic Imaging Diagonstic Imaging: CT Plain Films/CT/US/NM/MRI: other (Angiogram head and neck) Comments CT angiogram head and neck report reviewed. See report below: NAME: ARCHIE SUE [facility] REC#: [id number] PT STATUS: DEP ER : 1960 PHYSICIAN: MAJO EMERY MD ADMIT DATE: 07/09/20/ER Signed Date of Exam:07/09/20 CT ANGIO HEAD/NECK INDICATION: Dizziness. TECHNIQUE: Contiguous noncontrast images were obtained from the skull base through the vertex. After intravenous contrast administration, helical CT angiography of the neck was performed. Source data was reformatted into 3D MIP projections. Delayed post contrast acquisition was also obtained. Auto Exposure Controls were utilized during the CT exam to meet ALARA standards for radiation dose reduction. COMPARISON: There is no previous study for comparison. FINDINGS: Precontrast brain CT demonstrates no extra-axial fluid collection. No intracranial hemorrhage. No intracranial mass or mass effect. No midline shift. The ventricles are normal in size and position. There were no focal parenchymal abnormalities in the brain. Calvarial windows are normal. CTA neck findings: The thoracic aortic arch is patent and normal in caliber and appearance. The great vessel origins are patent and without stenosis. The common carotid arteries and carotid bifurcations are patent. The internal and external carotids are patent with no evidence of stenosis or dissection. The vertebral arteries on both sides are patent and appear codominant and without stenosis. CTA head findings: The distal vertebral arteries and basilar artery and posterior cerebral arteries are patent. The distal internal carotid arteries, anterior cerebral arteries, and middle cerebral arteries are patent. There is no major vessel stenosis or occlusion or aneurysmal disease. The dural venous sinuses are patent. Delayed views demonstrate no enhancing intracranial lesions. IMPRESSION: Negative CTA of the head and neck, including negative pre-contrast CT. Dictated by: Dictated on workstation # [id number] Dict: 07/09/20 1516 Trans: 07/09/201655 [facility] [id number] Interpreted by: EVELYN MAYER MD Electronically signed by: EVELYN MAYER MD 07/09/201655 Diagonstic Imaging: CT Plain Films/CT/US/NM/MRI: other (Lumbar spine) Comments CT lumbar spine report reviewed. See report below: NAME: ARCHIE SUE [facility] REC#: [id number] PT STATUS: REG ER : 1960 PHYSICIAN: MAJO EMERY MD ADMIT DATE: 07/09/20/ER Signed Date of Exam:07/09/20 CT LUMBAR SPINE WO EXAMINATION: CT lumbar spine without contrast. TECHNIQUE: Multiple contiguous axial images were obtained through the lumbar spine without the use of intravenous contrast. Sagittal and coronal reformations were then performed. All CT scans use one or more of the following dose optimizing techniques: automated exposure control, MA and/or KvP adjustment based on a patient size and exam type, or iterative reconstruction. HISTORY: Right thigh paresthesia. COMPARISON: CT abdomen and pelvis 06/14/2019. FINDINGS: The alignment of the lumbar spine is normal. Vertebral body heights are normal and no fracture is seen. There is multilevel facet hypertrophy. Degenerative disc disease greatest at L5-S1 with mild central canal and moderate left, and oeyneybi-ue-hrwkpy right neuroforaminal stenosis. Multilevel spondylosis. Limited views of the abdomen and pelvis show no soft tissue abnormality. Atherosclerosis of the aorta without aneurysm. IMPRESSION: 1. No acute osseous abnormality of the lumbar spine. 2. Degenerative changes of lumbar spine greatest at L5-S1 resulting in mild central canal, moderate left and dxvzvhln-au-fgeljw right neuroforaminal stenosis. Dictated by: Dictated on workstation # [id number] Dict: 07/09/20 1506 Trans: 07/09/20 1556 [facility] [id number] Interpreted by: LATRELL RICE DO Electronically signed by: LATRELL RICE DO 07/09/20 1556 Departure Impression Primary Impression: Vertigo Additional Impressions: Spinal stenosis, lumbar Qualified Codes: M48.062 - Spinal stenosis, lumbar region with neurogenic claudication Paresthesia of right leg Disposition: 01 HOME, SELF-CARE Condition: Stable Departure-Patient Inst. Decision time for Depature: 13:22 Referrals: NO,LOCAL PHYSICIAN (PCP/Family) Primary Care Physician Patient Instructions: Vertigo (a Type of Dizziness) (DC) Add. Discharge Instructions: Your vertigo may be due to inner ear viral infection or benign paroxysmal positional vertigo (BPPV). BPPV can be treated with the Chriss maneuver. See the handouts provided. Dizziness may be treated with meclizine as prescribed. Please be advised this medication may make you drowsy. You should not drive or operate heavy machinery while on this medication. Nausea may be treated with Zofran (ondansetron). Return to care if you have worsening symptoms. If symptoms persist after you have performed the Chriss maneuver several times, follow-up with a primary care provider. The numbness in your right thigh is likely because of spinal stenosis of your lower back. Return to the ER promptly if these symptoms worsen, especially if you develop weakness of your legs, difficulty controlling bowels or bladder, or numbness in your groin. Otherwise, follow-up with a primary care provider soon as possible to discuss further treatment and work-up. All discharge instructions reviewed with patient and/or family. Voiced understanding. Scripts Ondansetron (Ondansetron Odt) 4 Mg Tab.rapdis 4 MG SL Q4H PRN for NAUSEA/VOMITING, #10 TAB Prov: MAJO EMERY MD 07/09/20 Meclizine HCl (Meclizine HCl) 25 Mg Tablet 25 MG PO Q8H PRN for DIZZINESS, #20 TAB Prov: MAJO EMERY MD 07/09/20 MAJO EMERY MD Jul 09, 2020 13:27
[2020-07-09 14:21] LABS: BASOPHILS % (AUTO) 1 % (0-10); EOSINOPHILS # (AUTO) 0.1 10^3/uL (0.0-0.3); EOSINOPHILS % (AUTO) 1 % (0-10); HEMATOCRIT 46 % (40-54); HEMOGLOBIN 15.6 g/dL (13.3-17.7); LYMPHOCYTES # (AUTO) 2.2 10^3/uL (1.0-4.0); LYMPHOCYTES % (AUTO) 31 % (12-44); MEAN CORPUSCULAR HEMOGLOBIN 31 pg (25-34); MEAN CORPUSCULAR HGB CONC 34 g/dL (32-36); MEAN CORPUSCULAR VOLUME 93 fL (80-99); MEAN PLATELET VOLUME 9.7 fL (9.0-12.2); MONOCYTES # (AUTO) 0.7 10^3/uL (0.0-1.0); MONOCYTES % (AUTO) 10 % (0-12); NEUTROPHILS # (AUTO) 4.1 10^3/uL (1.8-7.8); NEUTROPHILS % (AUTO) 58 % (42-75); PLATELET COUNT 205 10^3/uL (130-400); WHITE BLOOD COUNT 7.1 10^3/uL (4.3-11.0)
[2020-07-09 14:27] LABS: BILIRUBIN,URINE NEGATIVE (NEGATIVE); CLARITY,URINE CLEAR; COLOR,URINE YELLOW; GLUCOSE, URINE (UA) NEGATIVE (NEGATIVE); KETONES,URINE NEGATIVE (NEGATIVE); LEUKOCYTE ESTERASE ,URINE NEGATIVE (NEGATIVE); NITRITE,URINE NEGATIVE (NEGATIVE); PH,URINE 7.5 (5-9); PROTEIN,URINE NEGATIVE (NEGATIVE)
[2020-07-09 14:29] LABS: ALBUMIN 4.1 GM/DL (3.2-4.5); CHLORIDE 103 MMOL/L (98-107); POTASSIUM 4.1 MMOL/L (3.6-5.0); SODIUM 140 MMOL/L (135-145)
[2020-07-09 14:30] LABS: CALCIUM 8.8 MG/DL (8.5-10.1)
[2020-07-09 14:31] LABS: GLUCOSE 118 MG/DL (70-105); TOTAL PROTEIN 7.1 GM/DL (6.4-8.2)
[2020-07-09 14:33] LABS: BILIRUBIN,TOTAL 1.3 MG/DL (0.1-1.0); CARBON DIOXIDE 28 MMOL/L (21-32)
[2020-07-09 14:35] LABS: ALKALINE PHOSPHATASE 67 U/L (40-136); CREATININE SERUM 0.93 MG/DL (0.60-1.30); GFR ESTIMATED > 60
[2020-07-09 14:36] LABS: BUN/CREATININE RATIO 14
[2020-07-09 14:38] LABS: ALANINE AMINOTRANSFERASE 34 U/L (0-55); MAGNESIUM 2.1 MG/DL (1.6-2.4)
[2020-07-09 14:40] LABS: AMORPHOUS SEDIMENT,UR MOD AMOR PHOSPHATE /LPF; BACTERIA,URINE NEGATIVE /HPF
[2020-07-09] MEDS ORDERED: NS 100 ML (IVPB) BAG IV ONE (15:00)
[2020-07-09] MEDS ORDERED: IOHEXOL 350 MG/ML 100 ML (OMNIPAQUE 350) VIAL IV ONE (15:00)
[2020-07-09] MEDS ORDERED: CATHETER FLUSH 10 ML SYR IV PRN (15:00)
[2020-07-09] MEDS ORDERED: HOLD METFORMIN - RECEIVED CONTRAST 20 ML VIAL IV SCH (15:00)
--- NOTE | 2020-07-09 15:11 | Diagnostic Imaging Report ---
EXAMINATION: CT lumbar spine without contrast. TECHNIQUE: Multiple contiguous axial images were obtained through the lumbar spine without the use of intravenous contrast. Sagittal and coronal reformations were then performed. All CT scans use one or more of the following dose optimizing techniques: automated exposure control, MA and/or KvP adjustment based on a patient size and exam type, or iterative reconstruction. HISTORY: Right thigh paresthesia. COMPARISON: CT abdomen and pelvis 06/14/2019. FINDINGS: The alignment of the lumbar spine is normal. Vertebral body heights are normal and no fracture is seen. There is multilevel facet hypertrophy. Degenerative disc disease greatest at L5-S1 with mild central canal and moderate left, and plibcylv-pl-voxzvt right neuroforaminal stenosis. Multilevel spondylosis. Limited views of the abdomen and pelvis show no soft tissue abnormality. Atherosclerosis of the aorta without aneurysm. IMPRESSION: 1. No acute osseous abnormality of the lumbar spine. 2. Degenerative changes of lumbar spine greatest at L5-S1 resulting in mild central canal, moderate left and tjjlickq-ei-daambq right neuroforaminal stenosis. Dictated by: Dictated on workstation # [id number]
--- NOTE | 2020-07-09 15:27 | Diagnostic Imaging Report ---
INDICATION: Dizziness. TECHNIQUE: Contiguous noncontrast images were obtained from the skull base through the vertex. After intravenous contrast administration, helical CT angiography of the neck was performed. Source data was reformatted into 3D MIP projections. Delayed post contrast acquisition was also obtained. Auto Exposure Controls were utilized during the CT exam to meet ALARA standards for radiation dose reduction. COMPARISON: There is no previous study for comparison. FINDINGS: Precontrast brain CT demonstrates no extra-axial fluid collection. No intracranial hemorrhage. No intracranial mass or mass effect. No midline shift. The ventricles are normal in size and position. There were no focal parenchymal abnormalities in the brain. Calvarial windows are normal. CTA neck findings: The thoracic aortic arch is patent and normal in caliber and appearance. The great vessel origins are patent and without stenosis. The common carotid arteries and carotid bifurcations are patent. The internal and external carotids are patent with no evidence of stenosis or dissection. The vertebral arteries on both sides are patent and appear codominant and without stenosis. CTA head findings: The distal vertebral arteries and basilar artery and posterior cerebral arteries are patent. The distal internal carotid arteries, anterior cerebral arteries, and middle cerebral arteries are patent. There is no major vessel stenosis or occlusion or aneurysmal disease. The dural venous sinuses are patent. Delayed views demonstrate no enhancing intracranial lesions. IMPRESSION: Negative CTA of the head and neck, including negative pre-contrast CT. Dictated by: Dictated on workstation # [id number]
[2020-07-09 16:00] VITALS: BP 124/78
== END 2020-07-09 16:00 | disposition home or self-care (01) ==
LOC: EDUNIT# 12:13 → ER 12:15
DX: R42 Dizziness and giddiness (principal); M48.061 Spinal stenosis, lumbar region without neurogenic claudication; R20.2 Paresthesia of skin; E66.9 Obesity, unspecified; Z68.38 Body mass index [BMI] 38.0-38.9, adult
CPT/HCPCS: 36415; 70496; 70498; 72131; 80053; 81000; 83735; 85025; 93041

== ENCOUNTER → 2020-11-10 | Outpatient (CLI) | payer BC ==
[~2020-11-10] VITALS: Ht 170 cm; Wt 105.0 kg
[~2020-11-10] MED LIST changes: +CATHETER FLUSH 10 ML SYR IV PRN; +MECL-149 PO; +ONDA4TAB11 SL
[2020-11-10 09:49] VITALS: BP 139/75
--- NOTE | 2020-11-10 11:27 | Cardiology Stress Test Report ---
Stress Test Report Date of Procedure/Referring: Date of Procedure: Nov 10, 2020 PCP Aleida Alvarado MD Admitting Physician No,Local Physician Indications: HTN Baseline Heart Rate: 87 Baseline Blood Pressure: Blood Pressure Systolic: 139 Blood Pressure Diastolic: 75 Vital Signs Date Time Temp Pulse Resp B/P (MAP) Pulse Ox O2 Delivery O2 Flow Rate FiO2 11/10/20 09:49 89 139/75 (96) Baseline Vital Signs Vital Signs Date Time Temp Pulse Resp B/P (MAP) Pulse Ox O2 Delivery O2 Flow Rate FiO2 11/10/20 09:49 89 139/75 (96) Baseline EKG: Baseline EKG: NSR Summary: After explaining the procedure and details to the patient, he signed the consent and was brought to the stress nuclear laboratory. Patient exercised on standard Reymundo protocol, EKG, heart rate and blood pressure were monitored continuously, resting and stress doses of radio tracer were injected, imaging was acquired and reviewed in the short axis, horizontal long axis and vertical long axis views Patient was able to exercise for a total of 4.30 minutes on Reymundo protocol, METs 6.4 Maximum heart rate 158 Maximum blood pressure 195/78 Stress EKG, Minimal nondiagnostic changes Recovery EKG, Return to baseline TID: 0.9 SSS: 1 SDS: 1 EF: 62 Conclusion: 1. Fair exercise tolerance for 4 minutes 30 seconds on standard Reymundo protocol achieving 6.4 METS, 97% of maximal expected heart rate 2. Appropriate heart rate response to exercise with hypertensive response to exercise with peak blood pressure 195/78 return to baseline during recovery 3. Nondiagnostic EKG changes with exercise return to baseline during recovery 4. No significant ischemia or infarction on SPECT images 5. Normal left ventricular size, EF 62% ALEIDA ALVARADO MD Nov 10, 2020 11:27
== END ==
LOC: CARD 08:15
PROVIDERS: ATTEND Internal Medicine Cardiovascular Disease
DX: I10 Essential (primary) hypertension (principal)
CPT/HCPCS: 78452; 93017; A9502

== ENCOUNTER 2022-01-27 20:13 | Observation (INO) | payer BC ==
[~2022-01-27] VITALS: Ht 172.7 cm; Wt 116.8 kg
[~2022-01-27 20:13] MED LIST changes: -CATHETER FLUSH 10 ML SYR IV PRN
--- NOTE | 2022-01-27 20:34 | ED Upper Extremity ---
General Stated Complaint: ARM INJURY History of Present Illness Date Seen by Provider: Jan 27, 2022 Time Seen by Provider: 20:33 Initial Comments Patient presents to the emergency department for left bicep tenderness. 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 C/O left arm pain since that time. On arrival getting vitals, it was noted that his heart rate was in the 160s. Denies chest pain, palpitations or shortness of breath. 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 Location Injury Occurred: at home Onset: just prior to arrival Severity: mild Pain/Injury Location: left arm Method of Injury: direct blow Modifying Factors: Worse With Movement; Improves With Rest Allergies and Home Medications Allergies Coded Allergies: No Known Drug Allergies (Unverified , 06/14/19) Patient Home Medication List Home Medication List Reviewed: Yes Docusate Sodium (Colace) 100 Mg Capsule, 100 MG PO DAILY Prescribed by: CIELO VILLANUEVA on 06/14/19 171 Hydrocodone/Acetaminophen (Hydrocodone/Acetaminophen 5 MG/325 MG TAB) 1 Each Tablet, 1 TAB PO Q4-6HR Prescribed by: CIELO VILLANUEVA on 06/14/19 171 Meclizine HCl (Meclizine HCl) 25 Mg Tablet, 25 MG PO Q8H PRN for DIZZINESS Prescribed by: MAJO TROY on 07/09/20 1327 Metoprolol Succinate (Toprol Xl) 50 Mg Tab.er.24h, 50 MG PO DAILY Prescribed by: CIELO VILLANUEVA on 06/14/19 171 Ondansetron (Ondansetron Odt) 4 Mg Tab.rapdis, 4 MG SL Q4H PRN for NAUSEA/VOMITING Prescribed by: MAJO TROY on 07/09/20 1327 Review of Systems Constitutional: No chills, No dizziness, No fever Respiratory: no symptoms reported Cardiovascular: No chest pain, No Hx of Intervention, No palpitations Gastrointestinal: No abdominal pain, No nausea, No vomiting Musculoskeletal: joint pain (left upper arm), joint swelling (left upper arm), muscle pain (left upper arm) Skin: no symptoms reported All Other Systems Reviewed Negative Unless Noted: Yes Past Zbjlpbq-Egxrro-Ogyome Hx Immunizations Up To Date Tetanus Booster (TDap): Unknown PED Vaccines UTD: No Seasonal Allergies Seasonal Allergies: No Past Medical History Surgeries: No Respiratory: No Cardiac: No Neurological: No Genitourinary: No Gastrointestinal: No Musculoskeletal: No Endocrine: No HEENT: No Cancer: No Psychosocial: No Integumentary: No Blood Disorders: No Family Medical History Reviewed Nursing Family Hx Physical Exam Vital Signs Vital Signs - First Documented 01/27/22 20:23 Temp 36.6 Pulse 165 Resp 20 B/P (MAP) 138/111 (120) Pulse Ox 95 O2 Delivery Room Air Capillary Refill : Height, Weight, BMI Height: '" Weight: lbs. oz. kg; 36.33 BMI Method: General Appearance: WD/WN Neck: non-tender, full range of motion, supple Cardiovascular: no edema, no murmur, tachycardia Respiratory: chest non-tender, lungs clear, normal breath sounds, no respiratory distress, no accessory muscle use Gastrointestinal: normal bowel sounds, non tender, soft, no organomegaly, no pulsatile mass Back: normal inspection Elbow/Forearm: Left, asymmetry, pain, soft tissue tenderness, swelling (appears to have bicep rupture, deformity noted where bicep is suppose to be attached) Neurologic/Psychiatric: alert, normal mood/affect, oriented x 3 Skin: normal color, warm/dry Progress/Results/Core Measures Results/Orders Lab Results Laboratory Tests Test 01/27/22 20:40 Range/Units White Blood Count 10.6 4.3-11.0 10^3/uL Red Blood Count 5.38 4.30-5.52 10^6/uL Hemoglobin 16.7 13.3-17.7 g/dL Hematocrit 49 40-54 % Mean Corpuscular Volume 91 80-99 fL Mean Corpuscular Hemoglobin 31 25-34 pg Mean Corpuscular Hemoglobin Concent 34 32-36 g/dL Red Cell Distribution Width 13.1 10.0-14.5 % Platelet Count 224 130-400 10^3/uL Mean Platelet Volume 9.9 9.0-12.2 fL Immature Granulocyte % (Auto) 0 % Neutrophils (%) (Auto) 71 42-75 % Lymphocytes (%) (Auto) 18 12-44 % Monocytes (%) (Auto) 10 0-12 % Eosinophils (%) (Auto) 1 0-10 % Basophils (%) (Auto) 1 0-10 % Neutrophils # (Auto) 7.5 1.8-7.8 10^3/uL Lymphocytes # (Auto) 1.9 1.0-4.0 10^3/uL Monocytes # (Auto) 1.0 0.0-1.0 10^3/uL Eosinophils # (Auto) 0.1 0.0-0.3 10^3/uL Basophils # (Auto) 0.1 0.0-0.1 10^3/uL Immature Granulocyte # (Auto) 0.0 0.0-0.1 10^3/uL Prothrombin Time 13.3 12.2-14.7 SEC INR Comment 1.0 0.8-1.4 Activated Partial Thromboplast Time 30 24-35 SEC Sodium Level 142 135-145 MMOL/L Potassium Level 4.1 3.6-5.0 MMOL/L Chloride Level 103 98-107 MMOL/L Carbon Dioxide Level 25 21-32 MMOL/L Anion Gap 14 5-14 MMOL/L Blood Urea Nitrogen 15 7-18 MG/DL Creatinine 1.06 0.60-1.30 MG/DL Estimat Glomerular Filtration Rate 81 BUN/Creatinine Ratio 14 Glucose Level 106 H 70-105 MG/DL Calcium Level 10.4 H 8.5-10.1 MG/DL Corrected Calcium 10.0 8.5-10.1 MG/DL Magnesium Level 1.8 1.6-2.4 MG/DL Total Bilirubin 1.1 H 0.1-1.0 MG/DL Aspartate Amino Transf (AST/SGOT) 30 5-34 U/L Alanine Aminotransferase (ALT/SGPT) 32 0-55 U/L Alkaline Phosphatase 72 40-136 U/L Myoglobin 99.8 H 10.0-92.0 NG/ML Troponin I < 0.028 <0.028 NG/ML B-Type Natriuretic Peptide 45.1 <100.0 PG/ML Total Protein 7.9 6.4-8.2 GM/DL Albumin 4.5 3.2-4.5 GM/DL My Orders Orders - UBALDO FLORIAN E ACCOUNT SUPPORT REP Cbc With Automated Diff (01/27/22 20:34) Magnesium (01/27/22 20:34) Chest 1 View, Ap/Pa Only (01/27/22 20:34) Ekg Tracing (01/27/22 20:34) Comprehensive Metabolic Panel (01/27/22 20:34) Myoglobin Serum (01/27/22 20:34) Protime With Inr (01/27/22 20:34) Partial Thromboplastin Time (01/27/22 20:34) O2 (01/27/22 20:34) Monitor-Rhythm Ecg Trace Only (01/27/22 20:34) Lipid Panel (01/28/22 06:00) Ed Iv/Invasive Line Start (01/27/22 20:34) Bnp [place] (01/27/22 20:34) Troponin I [place] (01/27/22 20:34) Adenosine Injection (Adenocard Injection (01/27/22 21:00) Adenosine Injection (Adenocard Injection (01/27/22 21:00) Adenosine Injection (Adenocard Injection (01/27/22 21:02) Ns Iv 1000 Ml (Sodium Chloride 0.9%) (01/27/22 21:15) Adenosine Injection (Adenocard Injection (01/27/22 21:15) Hydrocodone/Apap 5/325 Tablet (Lortab 5 (01/27/22 21:30) Diltiazem Drip Pre-Mix (Cardizem Drip Pr (01/27/22 21:45) Diltiazem Injection (Cardizem Injection) (01/27/22 21:45) Enoxaparin Injection (Lovenox Injection) (01/27/22 21:45) Enoxaparin Injection (Lovenox Injection) (01/28/22 09:45) Medications Given in ED Current Medications Medications Dose Ordered Sig/Hector Route Start Time Stop Time Status Last Admin Dose Admin Adenosine 6 mg ONCE ONCE IV 01/27/22 21:00 01/27/22 21:01 DC 01/27/22 20:52 6 MG Adenosine 6 mg STK-MED ONCE IV 01/27/22 21:02 01/27/22 21:04 DC 01/27/22 21:04 12 MG Adenosine 12 mg ONCE ONCE IV 01/27/22 21:00 01/27/22 21:01 DC 01/27/22 21:00 12 MG Vital Signs/I&O 01/27/22 20:23 Temp 36.6 Pulse 165 Resp 20 B/P (MAP) 138/111 (120) Pulse Ox 95 O2 Delivery Room Air Progress Progress Note : Progress Note Patient comes to the emergency department for left arm pain. Of note, upon arrival his heart rate was in the 160s. He was given three doses of Adenosine here in the department without change in heart rate. His heart rate briefly dropped to 90-120s and went right back into SVT. Dr. Samuel was in room and assisted with last two doses of Adenosine without conversion. Consulted with Dr. Alvarado in regards to patient. Recommended Cardizem gtt and bolus and Lovenox 1mg/kg. Consulted with Dr. Langford in regards to patient and he accepted for adm ission. Patient will be admitted to the ICU. Patient aware of plan of care and verbalized understanding. Continued to deny chest pain or shortness of breath while he was here in the department. Initial ECG Impression Date: Jan 27, 2022 Initial ECG Impression Time: 20:43 Initial ECG Rate: 155 Initial ECG Rhythm: SVT Initial ECG Impression: SVT Comment reviewed with Dr. Samuel Departure Communication (Admissions) Time/Spoke to Admitting Phy: 21:34 Dr. Langford Impression Primary Impression: SVT (supraventricular tachycardia) Additional Impression: Biceps tendon rupture Qualified Codes: S46.212A - Strain of muscle, fascia and tendon of other parts of biceps, left arm, initial encounter Disposition: 01 HOME, SELF-CARE Condition: Stable Admissions Decision to Admit Reason: Admit from ER (General) Decision to Admit/Date: Jan 27, 2022 Time/Decision to Admit Time: 21:28 Departure-Patient Inst. Referrals: NO,LOCAL PHYSICIAN (PCP/Family) Primary Care Physician UBALDO FLORIAN APRN Jan 27, 2022 20:34
[2022-01-27 20:50] LABS: BASOPHILS # (AUTO) 0.1 10^3/uL (0.0-0.1); BASOPHILS % (AUTO) 1 % (0-10); EOSINOPHILS # (AUTO) 0.1 10^3/uL (0.0-0.3); EOSINOPHILS % (AUTO) 1 % (0-10); HEMATOCRIT 49 % (40-54); HEMOGLOBIN 16.7 g/dL (13.3-17.7); LYMPHOCYTES # (AUTO) 1.9 10^3/uL (1.0-4.0); LYMPHOCYTES % (AUTO) 18 % (12-44); MEAN CORPUSCULAR HEMOGLOBIN 31 pg (25-34); MEAN CORPUSCULAR HGB CONC 34 g/dL (32-36); MEAN CORPUSCULAR VOLUME 91 fL (80-99); MEAN PLATELET VOLUME 9.9 fL (9.0-12.2); MONOCYTES % (AUTO) 10 % (0-12); NEUTROPHILS # (AUTO) 7.5 10^3/uL (1.8-7.8); NEUTROPHILS % (AUTO) 71 % (42-75); PLATELET COUNT 224 10^3/uL (130-400); WHITE BLOOD COUNT 10.6 10^3/uL (4.3-11.0)
[2022-01-27] MEDS ORDERED: ADENOSINE 6 MG/2 ML (ADENOCARD) VIAL IV ONE ×4 (21:00→21:15)
[2022-01-27 21:02] LABS: PROTHROMBIN TIME PATIENT 13.3 SEC (12.2-14.7)
--- NOTE | 2022-01-27 21:08 | Diagnostic Imaging Report ---
INDICATION: Chest pain COMPARISON: None FINDINGS: Single frontal view of the chest demonstrates normal heart size and pulmonary vascularity. The lungs are well aerated and clear. No large pleural effusion or pneumothorax is seen. The visualized osseous structures show no acute abnormalities. IMPRESSION: 1. No acute cardiopulmonary process. Dictated by: Dictated on workstation # [id number]
[2022-01-27] MEDS ORDERED: NS IV 1000 ML 1,000 ML IV SCH (21:15)
[2022-01-27 21:18] LABS: ALBUMIN 4.5 GM/DL (3.2-4.5); BILIRUBIN,TOTAL 1.1 MG/DL (0.1-1.0); CALCIUM 10.4 MG/DL (8.5-10.1); CREATININE SERUM 1.06 MG/DL (0.60-1.30); MAGNESIUM 1.8 MG/DL (1.6-2.4); POTASSIUM 4.1 MMOL/L (3.6-5.0); TOTAL PROTEIN 7.9 GM/DL (6.4-8.2)
[2022-01-27] MEDS ORDERED: HYDROcodone/APAP 5 MG/325 MG (LORTAB) TAB PO ONE (21:30)
[2022-01-27] MEDS ORDERED: ENOXAPARIN 100 MG/1 ML (LOVENOX) SYR SC SCH (21:45)
[2022-01-27] MEDS ORDERED: dilTIAZem DRIP PRE-MIX 125 ML IV SCH (21:45)
[2022-01-27] MEDS: ENOXAPARIN 100 MG/1 ML (LOVENOX) SYR SC SCH (21:52)
[2022-01-27 22:05] VITALS: BP 139/91
--- NOTE | 2022-01-28 00:01 | Tele-ICU Progress Note ---
Subjective Date Seen by a Provider: Jan 27, 2022 Time Seen by a Provider: 23:15 Subjective/Events-last exam (Tele-ICU Physician , consultation) Available chart/ vitals / labs / Images reviewed H&P is from ER notes Patient's information available about PMH, allergy reviewed in EMR. ROS as per chart and RN report Video assessment done using teleICU camera, rest of exam as per RN Discussed with RN. He is admitted with a complaint of left arm pain to the emergency room. 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 In the emergency room he had swelling in the biceps area suggestive of a biceps tendon rupture. Meanwh ile he is found to have a atrial fibrillation with rapid ventricular rate. He apparently has some cardiac problems in the past and sees a office manager executive assistant. Last cardiology visit was a month ago at that time everything was stable. Currently has no chest pain, shortness of breath or palpitations. He is a started on Cardizem drip by the cardiology service. At the time of my video visit he has a heart rate of 144/min and receiving Cardizem at 15 mg/h which has just been increased to that level. He is resting comfortably otherwise. No tele icu consultation requested but seen per protocol Sepsis Event Evaluation Height, Weight, BMI Height: '" Weight: lbs. oz. kg; 38.00 BMI Method: Exam Exam Patient acknowledged, consented, and participated in this virtual visit which was conducted using real time audio/video Vital Signs Date Time Temp Pulse Resp B/P (MAP) Pulse Ox O2 Delivery O2 Flow Rate FiO2 01/27/22 22:53 37.0 129 20 159/120 (133) 92 Room Air 01/27/22 22:16 133 20 150/99 95 Room Air 01/27/22 22:05 130 139/91 01/27/22 21:54 152 155/104 01/27/22 20:23 36.6 165 20 138/111 (120) 95 Room Air Height & Weight Height: '" Weight: lbs. oz. kg; 38.00 BMI Method: General Appearance: No Apparent Distress Capillary Refill: Less Than 3 Seconds Gastrointestinal: normal bowel sounds, non tender, soft, no organomegaly, no pulsatile mass Other comments PE PER RN Results Lab Laboratory Tests 01/27/22 20:40 Assessment/Plan Assessment/Plan 1. Atrial fibrillation with rapid ventricular rate 2. Traumatic rupture of left biceps tendon possibly. Recommendations 1. Cardizem drip and possible anticoagulation therapy per cardiology service 2. Suggest orthopedic consultation. 3. Tonight if his heart rate is not controlled we will consider as needed IV metoprolol Critical Care: Critically Ill Patient Time spent with patient (mins): 20 CATHERINE HERNANDEZ MD Jan 27, 2022 23:59
[2022-01-28] MEDS: ENOXAPARIN 100 MG/1 ML (LOVENOX) SYR SC SCH (00:27)
[2022-01-28] MEDS ORDERED: NS IV 500 ML 500 ML IV PRN (00:30)
[2022-01-28 05:18] LABS: BASOPHILS # (AUTO) 0.1 10^3/uL (0.0-0.1); BASOPHILS % (AUTO) 1 % (0-10); EOSINOPHILS # (AUTO) 0.1 10^3/uL (0.0-0.3); EOSINOPHILS % (AUTO) 1 % (0-10); HEMATOCRIT 45 % (40-54); HEMOGLOBIN 14.9 g/dL (13.3-17.7); LYMPHOCYTES # (AUTO) 2.5 10^3/uL (1.0-4.0); LYMPHOCYTES % (AUTO) 27 % (12-44); MEAN CORPUSCULAR HEMOGLOBIN 31 pg (25-34); MEAN CORPUSCULAR HGB CONC 33 g/dL (32-36); MEAN CORPUSCULAR VOLUME 92 fL (80-99); MEAN PLATELET VOLUME 10.1 fL (9.0-12.2); MONOCYTES # (AUTO) 0.8 10^3/uL (0.0-1.0); MONOCYTES % (AUTO) 9 % (0-12); NEUTROPHILS # (AUTO) 5.8 10^3/uL (1.8-7.8); NEUTROPHILS % (AUTO) 63 % (42-75); PLATELET COUNT 203 10^3/uL (130-400); WHITE BLOOD COUNT 9.3 10^3/uL (4.3-11.0)
[2022-01-28 05:44] LABS: CHOLESTEROL 194 MG/DL (< 200); HDL CHOLESTEROL 34 MG/DL (40-60); TRIGLYCERIDES 189 MG/DL (<150); VLDL CHOLESTEROL 38 MG/DL (5-40)
[2022-01-28] MEDS ORDERED: KCL 20 MEQ TAB (K-DUR) PO SCH (06:00)
[2022-01-28 06:26] LABS: ALBUMIN 3.9 GM/DL (3.2-4.5); BILIRUBIN,TOTAL 0.9 MG/DL (0.1-1.0); CALCIUM 9.1 MG/DL (8.5-10.1); CREATININE SERUM 0.82 MG/DL (0.60-1.30); MAGNESIUM 1.8 MG/DL (1.6-2.4); PHOSPHORUS 3.7 MG/DL (2.3-4.7); POTASSIUM 3.7 MMOL/L (3.6-5.0); TOTAL PROTEIN 6.7 GM/DL (6.4-8.2)
[2022-01-28] MEDS: POTASSIUM CL 10MEQ/50ML IVPB 50 ML IV SCH ×2 (06:47→06:48)
[2022-01-28] MEDS: MAGNESIUM 1 GM/100 ML IVPB 100 ML IV SCH ×2 (06:47→06:48)
--- NOTE | 2022-01-28 08:13 | Consultation-Cardiology ---
HPI-Cardiology Cardiology Consultation Date of Consultation 01/28/22 Date of Admission Time Seen by Provider: 08:07 Indication: Tachycardia HPI 61-year-old gentleman who was admitted for episodes of supraventricular tachycardia. He came to the emergency room after he bumped his left arm, he was having pain in his arm. He denied any chest pain or shortness of breath denied any palpitation. Noted to be tachycardic with rapid heart rate around 160. Given adenosine with multiple doses without improvement. He was started on Cardizem drip and heart rate has improved. Cardizem drip was discontinued earlier this morning. On my evaluation he denied any chest pain or shortness of breath. Denied any palpitation. Home Medications & Allergies Allergies: Coded Allergies: No Known Drug Allergies (Unverified , 06/14/19) Home Medication List Reviewed: Yes QIC-Xasnub-Oteykt Hx Patient Social History Marital Status: Employed/Student: employed Smoking Status: Never a Smoker 2nd Hand Smoke Exposure: No Recent Hopitalizations: No Have you traveled recently?: No Alcohol Use?: No Immunizations Up To Date Tetanus Booster (TDap): Unknown Past Medical History Discussed below Family Medical History Significant Family History: No Pertinent Family Hx Review of Systems-General Review of Systems Constitutional: No chills, No dizziness, No fever EENTM: see HPI, no symptoms reported Respiratory: no symptoms reported Cardiovascular: No chest pain, No Hx of Intervention, No palpitations Gastrointestinal: No abdominal pain, No nausea, No vomiting Genitourinary: no symptoms reported, see HPI Musculoskeletal: joint pain (left upper arm), joint swelling (left upper arm), muscle pain (left upper arm) Skin: no symptoms reported Psychiatric/Neurological: No Symptoms Reported, See HPI All Other Systems Reviewed Negative Unless Noted: Yes Reviewed Test Results Reviewed Test Results Lab Laboratory Tests Test 01/27/22 20:40 01/28/22 03:23 01/28/22 04:46 Range/Units White Blood Count 10.6 9.3 4.3-11.0 10^3/uL Red Blood Count 5.38 4.86 4.30-5.52 10^6/uL Hemoglobin 16.7 14.9 13.3-17.7 g/dL Hematocrit 49 45 40-54 % Mean Corpuscular Volume 91 92 80-99 fL Mean Corpuscular Hemoglobin 31 31 25-34 pg Mean Corpuscular Hemoglobin Concent 34 33 32-36 g/dL Red Cell Distribution Width 13.1 13.2 10.0-14.5 % Platelet Count 224 203 130-400 10^3/uL Mean Platelet Volume 9.9 10.1 9.0-12.2 fL Immature Granulocyte % (Auto) 0 0 % Neutrophils (%) (Auto) 71 63 42-75 % Lymphocytes (%) (Auto) 18 27 12-44 % Monocytes (%) (Auto) 10 9 0-12 % Eosinophils (%) (Auto) 1 1 0-10 % Basophils (%) (Auto) 1 1 0-10 % Neutrophils # (Auto) 7.5 5.8 1.8-7.8 10^3/uL Lymphocytes # (Auto) 1.9 2.5 1.0-4.0 10^3/uL Monocytes # (Auto) 1.0 0.8 0.0-1.0 10^3/uL Eosinophils # (Auto) 0.1 0.1 0.0-0.3 10^3/uL Basophils # (Auto) 0.1 0.1 0.0-0.1 10^3/uL Immature Granulocyte # (Auto) 0.0 0.0 0.0-0.1 10^3/uL Prothrombin Time 13.3 12.2-14.7 SEC INR Comment 1.0 0.8-1.4 Activated Partial Thromboplast Time 30 24-35 SEC Sodium Level 142 140 135-145 MMOL/L Potassium Level 4.1 3.7 3.6-5.0 MMOL/L Chloride Level 103 106 98-107 MMOL/L Carbon Dioxide Level 25 22 21-32 MMOL/L Anion Gap 14 12 5-14 MMOL/L Blood Urea Nitrogen 15 14 7-18 MG/DL Creatinine 1.06 0.82 0.60-1.30 MG/DL Estimat Glomerular Filtration Rate 81 101 BUN/Creatinine Ratio 14 17 Glucose Level 106 H 119 H 70-105 MG/DL Calcium Level 10.4 H 9.1 8.5-10.1 MG/DL Corrected Calcium 10.0 9.2 8.5-10.1 MG/DL Magnesium Level 1.8 1.8 1.6-2.4 MG/DL Total Bilirubin 1.1 H 0.9 0.1-1.0 MG/DL Aspartate Amino Transf (AST/SGOT) 30 22 5-34 U/L Alanine Aminotransferase (ALT/SGPT) 32 25 0-55 U/L Alkaline Phosphatase 72 60 40-136 U/L Myoglobin 99.8 H 10.0-92.0 NG/ML Troponin I < 0.028 <0.028 NG/ML B-Type Natriuretic Peptide 45.1 <100.0 PG/ML Total Protein 7.9 6.7 6.4-8.2 GM/DL Albumin 4.5 3.9 3.2-4.5 GM/DL Glucometer 116 H 70-110 MG/DL Phosphorus Level 3.7 2.3-4.7 MG/DL Triglycerides Level 189 H <150 MG/DL Cholesterol Level 194 < 200 MG/DL LDL Cholesterol Direct 155 H 1-129 MG/DL VLDL Cholesterol 38 5-40 MG/DL HDL Cholesterol 34 L 40-60 MG/DL Physical Exam Physical Exam Vital Signs Vital Signs - First Documented 01/27/22 20:23 Temp 36.6 Pulse 165 Resp 20 B/P (MAP) 138/111 (120) Pulse Ox 95 O2 Delivery Room Air Capillary Refill : Less Than 3 Seconds Height, Weight, BMI Height: '" Weight: lbs. oz. kg; 39.16 BMI Method: General Appearance: No Apparent Distress Eyes: Bilateral Eye Normal Inspection, Bilateral Eye PERRL, Bilateral Eye EOMI HEENT: PERRL/EOMI, TMs Normal, Normal ENT Inspection, Pharynx Normal, Moist Mucous Membranes Neck: Full Range of Motion, Normal Inspection, Non Tender, Supple, Carotid Bruit Respiratory: Chest Non Tender, Normal Breath Sounds, No Accessory Muscle Use, No Respiratory Distress Cardiovascular: Regular Rate, Rhythm, No Edema, No Gallop, No JVD, No Murmur, Normal Peripheral Pulses Gastrointestinal: Normal Bowel Sounds, No Organomegaly, No Pulsatile Mass, Non Tender, Soft Back: Normal Inspection, No CVA Tenderness, No Vertebral Tenderness Extremity: Normal Capillary Refill, Normal Inspection, Normal Range of Motion, Non Tender, No Calf Tenderness, No Pedal Edema Neurologic/Psychiatric: Alert, Oriented x3, No Motor/Sensory Deficits, Normal Mood/Affect Skin: Normal Color, Warm/Dry Lymphatic: No Adenopathy A/P-Cardiology Admission Diagnosis Left arm pain Paroxysmal atrial tachycardia Hypertension Hyperlipidemia. Assessment/Plan Left arm pain after trauma to his left bicep. Area ammonia distiller to touch, no bruising or ecchymosis. No hematoma. Paroxysmal atrial tachycardia, had multiple episodes of atrial tachycardia with a heart rate around 160. Improved on Cardizem drip. Has been on Toprol-XL 25 mg daily which will be restarted and I will add Cardizem CD120. Hypertension, restarting Toprol XL 25 mg daily and adding Cardizem CD 120 Hold losartan for now. Mixed hyperlipidemia, lipid profile done in August 2021 showing total cholesterol 192, HDL 38, triglyceride 115, LDL 131. We discussed weight loss and exercise again. Stress test done October 2020 showed no ischemia or infarct. 2D Echo done August 2019 showing EF 55-65%, PA 20-25mmHg. I will repeat 2D echocardiogram Recent inguinal hernia. Family history CAD BMI 38, we discussed weight loss. ALEIDA PETE MD Jan 28, 2022 08:13
[2022-01-28] MEDS ORDERED: dilTIAZem120 MG (CARDIZEM CD) CAP PO SCH (09:00)
[2022-01-28] MEDS ORDERED: APIXABAN 5 MG (ELIQUIS) TABLET PO SCH (09:00)
--- NOTE | 2022-01-28 09:14 | Tele-ICU Progress Note ---
Subjective Date Seen by a Provider: Jan 28, 2022 Time Seen by a Provider: 09:13 Subjective/Events-last exam (Tele-ICU Physician , consultation as per request of PCP Service provided via interactive audio and video telecommunications E-CARE system to a patient admitted to ICU bed in [facility]. Seen by Dr Chilel last night Now in ICU, hemodynamically stable Video assessment done using teleICU camera, rest of exam as per RN Discussed with RN. Available chart/ vitals / labs / Images reviewed Video assessment done using teleICU camera, rest of exam as per RN Discussed with RN Events overnight : Afebrile hemodynamically stable Respiratory - I/O = Drips: Pressors- no Consultants: kamala Hospital course: 01/27 SVT Patient is seen today due to persistent and new A/P Left arm pain after trauma to his left bicep. - as per PCP PAF - off cardizernm gtt - eliquis AC -echo pending - as per cards 2D Echo done August 2019 showing EF 55-65%, PA 20-25mmHg BMI 38, we discussed weight loss. ? might need sleep study Lines : , (Central Line Necessity Reviewed) Esquivel: void OG: Nutrition: Analgesia: Anxiety/ delirium VTE Prophylaxis: eliquis Stress Ulcer Prophylaxis:na Plans in collaboration with bedside consultants and IM MDs. Discussed with RN to reach out if any questions or concerns A total of 20 minutes of critical care time was devoted to this patient today, required to treat and/or prevent further deterioration of critical care condition ( as above ) . I am remotely monitoring this patient from another state. I am unable to do the bedside exam, and history/physical and pertinent information is taken from other notes in the computer and bedside staff. Sepsis Event Evaluation Height, Weight, BMI Height: '" Weight: lbs. oz. kg; 39.16 BMI Method: Exam Exam Patient acknowledged, consented, and participated in this virtual visit which was conducted using real time audio/video Vital Signs Date Time Temp Pulse Resp B/P (MAP) Pulse Ox O2 Delivery O2 Flow Rate FiO2 01/28/22 08:00 89 11 140/92 (108) 97 Room Air 01/28/22 08:00 97 Room Air 01/28/22 07:45 36.0 01/28/22 07:00 83 01/28/22 07:00 88 16 124/80 (95) 97 Room Air 01/28/22 06:00 86 21 132/82 (99) 95 Room Air 01/28/22 05:00 85 20 125/81 (96) 95 Room Air 01/28/22 04:00 94 Room Air 01/28/22 04:00 82 20 130/76 (94) 96 Room Air 01/28/22 03:00 98 27 126/79 (95) 96 Room Air 01/28/22 02:00 92 26 139/89 (106) 97 Room Air 01/28/22 01:00 96 27 132/88 (103) 96 Room Air 01/28/22 01:00 114 01/28/22 00:00 95 22 148/97 (114) 96 Room Air 01/28/22 00:00 94 Room Air 01/27/22 23:00 94 Room Air 01/27/22 22:53 37.0 129 20 159/120 (133) 92 Room Air 01/27/22 22:51 131 01/27/22 22:16 133 20 150/99 95 Room Air 01/27/22 22:05 130 139/91 01/27/22 21:54 152 155/104 01/27/22 20:23 36.6 165 20 138/111 (120) 95 Room Air I & O 01/28/22 07:00 Intake Total 750 ml Output Total 575 ml Balance 175 ml Height & Weight Height: '" Weight: lbs. oz. kg; 39.16 BMI Method: General Appearance: No Apparent Distress HEENT: PERRL/EOMI, TMs Normal, Normal ENT Inspection, Pharynx Normal, Moist Mucous Membranes Neck: Full Range of Motion, Normal Inspection, Non Tender, Supple, Carotid Bruit Respiratory: Chest Non Tender, Normal Breath Sounds, No Accessory Muscle Use, No Respiratory Distress Cardiovascular: Regular Rate, Rhythm, No Edema, No Gallop, No JVD, No Murmur, Normal Peripheral Pulses Capillary Refill: Less Than 3 Seconds Gastrointestinal: normal bowel sounds, non tender, soft, no organomegaly, no pulsatile mass Extremity: Normal Capillary Refill, Normal Inspection, Normal Range of Motion, Non Tender, No Calf Tenderness, No Pedal Edema Neurologic/Psychiatric: Alert, Oriented x3, No Motor/Sensory Deficits, Normal Mood/Affect Skin: Normal Color, Warm/Dry Lymphatic: No Adenopathy Results Lab Laboratory Tests 01/27/22 20:40 01/28/22 04:46 Assessment/Plan Assessment/Plan 1 MARYCRUZ MONTGOMERY MD Jan 28, 2022 09:14
--- NOTE | 2022-01-28 09:31 | History & Physical-Hospitalist ---
History of Present Illness HPI/Chief Complaint Pt is a 61yoCM with a PMH of HTN who presented to the ER due to arm pain. He reports he was kicked by a sheep and then felt a pop and has right upper arm pain. On arrival to the ER he was found to be tachycardiac with rates in the 160s. He was given adenosine multiple times for SVT which slowed his rate but it quickly increased again. He was admitted on a cardizem gtt. He reports feeling fine this morning. He denies any chest pain or palpiations. He is hopeful for discharge home so he can take care of his animals (exotic birds). He does report arm pain as well but denies need for any medications. Source: patient Date Seen 01/28/22 Time Seen by a Provider: 08:20 Attending Physician No,Local Physician PCP Admitting Physician: Godwin Langford MD Attending Physician: Godwin Langford MD Referring Physician Date of Admission Jan 27, 2022 at 21:34 Home Medications & Allergies Home Medications Reviewed patient Home Medication Reconciliation performed by pharmacy medication reconciliations vehicle monitor technician and/or nursing. Patients Allergies have been reviewed. Allergies Allergies Coded Allergies No Known Drug Allergies (Unverified06/14/19) Past Omhxyfo-Aycijb-Huaani Hx Patient Social History Marrital Status: Employed/Student: employed Tobacco Use?: No Smoking Status: Never a Smoker Smokeless Tobacco Frequency: Never a User Use of E-Cig and/or Vaping dev: No Substance use?: No Alcohol Use?: No Pt feels they are or have been: No Immunizations Up To Date First/Initial COVID19 Vaccinat: 06/23/20 Second COVID19 Vaccination Jadiel: 2020 Tetanus Booster (TDap): Unknown Hepatitis A: No Hepatitis B: No PED Vaccines UTD: No Seasonal Allergies Seasonal Allergies: No Current Status Advance Directives: No Communicates: Verbally Primary Language: Azerbaijani Preferred Spoken Language: Azerbaijani Is interpretation needed?: No Implanted or Applied Medical D: None Past Medical History Blood Disorders: No Family Medical History Reviewed Nursing Family Hx No Pertinent Family Hx Review of Systems Constitutional: No chills, No fever EENTM: no symptoms reported Respiratory: no symptoms reported Cardiovascular: see HPI Gastrointestinal: no symptoms reported Genitourinary: no symptoms reported Musculoskeletal: see HPI Skin: no symptoms reported Psychiatric/Neurological: No Symptoms Reported Physical Exam Physical Exam Vital Signs Vital Signs - First Documented 01/27/22 20:23 Temp 36.6 Pulse 165 Resp 20 B/P (MAP) 138/111 (120) Pulse Ox 95 O2 Delivery Room Air Capillary Refill : Less Than 3 Seconds Height, Weight, BMI Height: '" Weight: lbs. oz. kg; 39.16 BMI Method: General Appearance: No Apparent Distress, WD/WN HEENT: PERRL/EOMI, Moist Mucous Membranes Neck: Normal Inspection, Supple Respiratory: Lungs Clear, No Respiratory Distress Cardiovascular: No Murmur Gastrointestinal: Normal Bowel Sounds, Non Tender, Soft Extremity: Normal Capillary Refill, No Calf Tenderness, Other (right upper arm ) Neurologic/Psychiatric: Alert, Oriented x3, Normal Mood/Affect Results Results/Procedures Labs Laboratory Tests 01/27/22 20:40 01/28/22 04:46 Patient resulted labs reviewed. Imaging: Reviewed Imaging Report Imaging [facility] [place], [place] NAME: RASHIDAARTEMIOMEMOARCHIE R [facility] REC#: [id number] PT STATUS: REG ER : 1960 PHYSICIAN: UBALDO FLORIAN APRN ADMIT DATE: 01/27/22/ER Draft Date of Exam:01/27/22 CHEST 1 VIEW, AP/PA ONLY INDICATION: Chest pain COMPARISON: None FINDINGS: Single frontal view of the chest demonstrates normal heart size and pulmonary vascularity. The lungs are well aerated and clear. No large pleural effusion or pneumothorax is seen. The visualized osseous structures show no acute abnormalities. IMPRESSION: 1. No acute cardiopulmonary process. Dictated on workstation # [id number] Dict: 01/27/222106 Trans: 01/27/222108 CVB [id number] Interpreted by: JAMARCUS MARKHAM MD Electronically signed by: Assessment/Plan Admission Diagnosis SVT Admission Status: Observation Assessment and Plan SVT HTN Continue on cardizem gtt Atrial tachycardia noted on EKG Cardiology consulted, appreciate recs Telemetry Metoprolol and Cardizem Eliquis Echo ordered Biceps tendon rupture Discussed with Dr Crowell who recommends outpatient follow up Referral placed DVT ppx: Eliquis Diagnosis/Problems Diagnosis/Problems (1) SVT (supraventricular tachycardia) Status: Acute (2) Biceps tendon rupture Status: Acute Qualifiers: Encounter type: initial encounter Laterality: left Qualified Codes: S46.212A - Strain of muscle, fascia and tendon of other parts of biceps, left arm, initial encounter JUAN SOLIS MD Jan 28, 2022 09:31
[2022-01-28] MEDS ORDERED: LOSA50TA63 PO (10:40)
[2022-01-28] MEDS ORDERED: MTP25TSR PO (10:40)
[2022-01-28] MEDS ORDERED: APIX5TAB PO (12:46)
[2022-01-28] MEDS ORDERED: DILT-27 PO (12:46)
--- NOTE | 2022-01-28 12:47 | Discharge Inst-Simple/Standard ---
Discharge Inst-Standard Discharge Medications New, Converted or Re-Newed RX: Transmitted to Pharmacy Patient Instructions/Follow Up Plan of Care/Instructions/FU: Please continue to take your medications as written. Please follow up with your primary care doctor to follow up this hospital stay. Please follow up with Dr Alvarado next week and with Dr Crowell as scheduled. Activity as Tolerated: Yes Discharge Diet: Cardiac Diet Return to The Hospital For: Chest pain, racing heart, shortness of breath, fever, weakness, if you feel you are getting worse. JUAN SOLIS MD Jan 28, 2022 12:47
== END 2022-01-28 12:57 | disposition home or self-care (01) ==
LOC: EDUNIT# 20:13 → ER 20:15 → UNDOADMIN 21:34 → ICU 21:34 → UNDODISIN 01-28 14:00
PROVIDERS: ADMIT Internal Medicine; ATTEND Internal Medicine
DX: I47.1 Supraventricular tachycardia (principal); I10 Essential (primary) hypertension; S46.212A Strain of muscle, fascia and tendon of other parts of biceps, left arm, initial encounter; E78.2 Mixed hyperlipidemia; K40.90 Unilateral inguinal hernia, without obstruction or gangrene, not specified as recurrent
CPT/HCPCS: 71045; 80053 ×2; 80061; 82947; 83735 ×2; 83874; 83880; 84100; 84484; 85025 ×2; 85610; 85730; 87081; 93005 ×2; 93041; 96361; 96365; 96366 ×2; 96372; 96374; 96375; 96376 ×2; 99285; C8929; G0378 ×2; 36415; 93306

== ENCOUNTER → 2022-01-28 | Outpatient (CLI) | payer BC ==
[~2022-01-28] MED LIST changes: +APIX5TAB PO; +DILT-27 PO; +LOSA50TA63 PO; +MTP25TSR PO
== END ==
LOC: CARD 14:09
PROVIDERS: ATTEND Physician Assistant
DX: R00.0 Tachycardia, unspecified (principal)
CPT/HCPCS: 93246

== ENCOUNTER 2022-05-26 11:30 | Day surgery (SDC) | payer BC ==
[~2022-05-26] VITALS: Ht 175.3 cm; Wt 118.3 kg
[~2022-05-26 11:30] MED LIST changes: -CATHETER FLUSH 10 ML SYR IVP PRN; +LIDOCAINE 1% INJ 20 ML VIAL INJ ONE; +LIDOCAINE 1% INJ 20 ML VIAL ONE
[2022-05-26 11:46] VITALS: BP 153/95
--- NOTE | 2022-05-26 13:01 | Implantation of Loop Monitor ---
Implant of Loop Monitior IMPLANTATION OF LOOP MONITOR REPORT DATE OF PROCEDURE: 05/26/22 PREOP DIAGNOSIS: Paroxysmal atrial fibrillation POSTOP DIAGNOSIS: Paroxysmal atrial fibrillation PROCEDURE DETAILS: The patient is a 62 male with history of paroxysmal atrial fibrillation requiring long-term surveillance. Therefore implantable loop recorder was discussed and agreed with the patient. Informed consent was taken. All risks and complications were discussed at length. The patient was draped and prepped in the usual sterile fashion. Local anesthesia was lidocaine, which was given in the substernal area close to the 4th intercostal space. Loop monitor [employer] with serial number [id number] was implanted according to the protocol. Steri- Strips were placed at the end of the procedure. There were no complications and the patient tolerated the procedure well. ANESTHESIA: Local anesthesia with lidocaine. COMPLICATIONS: None CONTRAST/FLUOROSCOPY: None CONCLUSION: Successful implantation of loop monitor with no complication FINAL DIAGNOSIS: Paroxysmal atrial fibrillation Palpitation ALEIDA PETE MD May 26, 2022 13:01
== END 2022-05-26 13:19 | disposition home or self-care (01) ==
LOC: CATH 11:30
PROVIDERS: ATTEND Internal Medicine Cardiovascular Disease
DX: I48.0 Paroxysmal atrial fibrillation (principal); I47.1 Supraventricular tachycardia; I10 Essential (primary) hypertension; E78.2 Mixed hyperlipidemia; K40.90 Unilateral inguinal hernia, without obstruction or gangrene, not specified as recurrent; E66.9 Obesity, unspecified; G47.33 Obstructive sleep apnea (adult) (pediatric); Z68.38 Body mass index [BMI] 38.0-38.9, adult; Z82.49 Family history of ischemic heart disease and other diseases of the circulatory system; Z79.01 Long term (current) use of anticoagulants
CPT/HCPCS: 33285; C1764

== ENCOUNTER → 2022-05-26 | Outpatient (CLI) | payer BC ==
[~2022-05-26] VITALS: Ht 175 cm; Wt 120.0 kg
[~2022-05-26] MED LIST changes: +CATHETER FLUSH 10 ML SYR IVP PRN
[2022-05-26 10:14] VITALS: BP 180/94
--- NOTE | 2022-05-26 13:54 | Cardiology Stress Test Report ---
Stress Test Report Date of Procedure/Referring: Date of Procedure: May 26, 2022 PCP No,Local Physician Admitting Physician Admitting Physician: Attending Physician: Luisa Dupree Baseline Heart Rate: 85 Baseline Blood Pressure: Blood Pressure Systolic: 180 Blood Pressure Diastolic: 94 Baseline Vitals Vital Signs Date Time Temp Pulse Resp B/P (MAP) Pulse Ox O2 Delivery O2 Flow Rate FiO2 05/26/22 10:14 95 24 180/94 (122) Baseline EKG: Baseline EKG: NSR Summary After explaining the procedure to the patient, he signed a consent and then brought to the stress nuclear laboratory. Patient received 0.4 mg Lexiscan for stress test, ECG, heart rate and blood pressure were monitored continuously. Resting and stress dose of radio tracer were injected, imaging was acquired and reviewed in short axis, horizontal long axis and vertical long axis views. TID: 0.9 SSS: 3 SDS: 3 EF: 51 Patient tolerated Lexiscan well Diaphragmatic attenuation, mild reversible ischemia involving the mid to apical anterior wall Normal left ventricular size, EF 51% ALEIDA PETE MD May 26, 2022 13:54
== END ==
LOC: CARD 08:07
PROVIDERS: ATTEND Physician Assistant
DX: I10 Essential (primary) hypertension (principal)
CPT/HCPCS: 78452; 93017; A9502

== ENCOUNTER 2022-06-16 10:40 | Day surgery (SDC) | payer BC ==
[2022-06-16] VITALS (11 sets, daily range): BP systolic 131–187; BP diastolic 83–109
[~2022-06-16] VITALS: Ht 176.3 cm; Wt 119.2 kg
[~2022-06-16 10:40] MED LIST changes: -LIDOCAINE 1% INJ 20 ML VIAL INJ ONE; -LIDOCAINE 1% INJ 20 ML VIAL ONE
[2022-06-16] MEDS ORDERED: NS IV 1000 ML 1,000 ML ONE (10:49)
[2022-06-16] MEDS ORDERED: LIDOCAINE 1% INJ 20 ML VIAL ONE (10:49)
[2022-06-16] MEDS ORDERED: HEParin (CATH LAB) 2,000 ML IV ONE (10:49)
[2022-06-16] MEDS ORDERED: NS IV 1000 ML 1,000 ML IV SCH ×3 (11:00→13:45)
--- NOTE | 2022-06-16 11:12 | Diagnostic Imaging Report ---
INDICATION: Abnormal stress test, pre-heart catheterization evaluation.. TECHNIQUE: Single view chest 11:10 AM. CORRELATION STUDY: 01/27/2022 FINDINGS: Heart size enlarged. Loop recorder device has been placed, projecting over the left hilum. Vasculature within normal limits. Limited depth of inspiration. However, no significant infiltrate. IMPRESSION: 1. Cardiac enlargement without failure. Dictated by: Dictated on workstation # [id number]
[2022-06-16 11:14] LABS: HEMATOCRIT 48 % (40-54); HEMOGLOBIN 16.3 g/dL (13.3-17.7); MEAN CORPUSCULAR HEMOGLOBIN 30 pg (25-34); MEAN CORPUSCULAR HGB CONC 34 g/dL (32-36); MEAN CORPUSCULAR VOLUME 90 fL (80-99); MEAN PLATELET VOLUME 9.7 fL (9.0-12.2); PLATELET COUNT 227 10^3/uL (130-400); WHITE BLOOD COUNT 6.5 10^3/uL (4.3-11.0)
[2022-06-16] MEDS ORDERED: DILT120C85 PO (11:23)
[2022-06-16] MEDS ORDERED: LOSA25TA41 PO (11:23)
[2022-06-16] MEDS ORDERED: METO50TA7 PO (11:24)
[2022-06-16] MEDS ORDERED: MTP25TSR PO (11:24)
[2022-06-16] MEDS ORDERED: ATOR10TA PO (11:24)
[2022-06-16] MEDS ORDERED: RIVA20TA PO (11:25)
[2022-06-16 11:32] LABS: ALBUMIN 4.4 GM/DL (3.2-4.5); BILIRUBIN,TOTAL 0.9 MG/DL (0.1-1.0); CALCIUM 9.6 MG/DL (8.5-10.1); CREATININE SERUM 0.89 MG/DL (0.60-1.30); POTASSIUM 4.2 MMOL/L (3.6-5.0); TOTAL PROTEIN 7.6 GM/DL (6.4-8.2)
[2022-06-16 11:36] LABS: INR 0.9 (0.8-1.4); PROTHROMBIN TIME PATIENT 12.8 SEC (12.2-14.7)
--- NOTE | 2022-06-16 12:03 | Cardiac Procedure Note-CS/ASA ---
Pre-Procedure Note Pre-Op Procedure Note Date of Available H&P: Jun 01, 2022 Date H&P Reviewed: Jun 16, 2022 Time H&P Reviewed: 12:02 History & Physical: H&P Reviewed, Patient Examed, No changes noted Pre-Operative Diagnosis: CAD Moderate Sedation PreProcedure Time 12:02 ASA Score 3 Airway Lungs Heart ASA score ASA 1: a normal healthy patient ASA 2: a patient with a mild systemic disease (mid diabetes, controlled hypertension, obesity ASA 3: a patient with a severe systemic disease that limits activity (angina, COPD, prior Myocardial infarction) ASA 4: a patient with an incapacitating disease that is a constant threat to life (CHF, renal failure) ASA 5: a moribund patient not expected to survive 24 hrs. (ruptured aneurysm) ASA 6: a declared brain- patient whose organs are being harvested. For emergent operations, add the letter E after the classification Mallampati Classification Grade 3 Sedation Plan Analgesia, Amnesia, Plan communicated to team members, Discussed options with patient/fam, Discussed risks with patient/fam The patient is an appropriate candidate to undergo the planned procedure, sedation, and anesthesia. The patient immediately re-assessed prior to indication. ALEIDA PETE MD Jun 16, 2022 12:03
[2022-06-16] MEDS ORDERED: MIDAZOLAM 5 MG/5 ML (VERSED) VIAL ONE (12:33)
[2022-06-16] MEDS ORDERED: VERAPAMIL 5 MG/2 ML (CALAN) VIAL IV ONE (12:33)
[2022-06-16] MEDS ORDERED: fentaNYL INJ 100 MCG/2 ML AMP ONE (12:33)
[2022-06-16] MEDS ORDERED: NITRO DRIP 25000 MCG/D5W 250 ML IV ONE (12:33)
[2022-06-16] MEDS ORDERED: HEParin 1000 UNIT/ML (10ML VIAL) FOR BOLUS ONE (12:33)
--- NOTE | 2022-06-16 13:34 | Discharge Inst-Post CATH ---
Discharge Inst-CATH/EP Problems Reviewed?: Yes Post Cardiac Cath/EP D/C Inst Follow Up/Plan Appointment with Dr. Alvarado's office in 2 to 4 weeks <b>CARDIAC CATH/EP PROCEDURE DISCHARGE INSTRUCTIONS</b> ACTIVITY * Go Home directly and rest. * Limit activity of the leg (or wrist if it was used) for 7 days including aer obics, swimming, jogging, bicycling, etc. * Restrict stair-climbing for 7 days if possible, if not, climb up with your non-cath leg, then bring together on the same step. * Avoid lifting, pushing, pulling or excessive movement of the affected extremi ty for 7 days. * Customary sexual activity may be resumed after 2 days-use caution not to use a position that strains or causes pain to the affected extremity. * No driving for 24 hours. * NO SMOKING. * Avoid straining for bowel movements for 7 days. * Gentle walking on level ground is allowed. * Returning to work will depend on the type of procedure and the results. Your doctor will discuss this with you. CALL YOUR DOCTOR FOR ANY OF THE FOLLOWING: *If bleeding from the puncture site occurs- Apply gentle pressure to site with clean cloth and call your doctor or EMS. * If a knot or lump forms under the skin, increases in size, or causes pain. * If bruising appears to be worsening or moving further down your leg instead of disappearing. * Temperature above 101 F. CARE OF YOUR GROIN INCISION; * Bruising or purple discoloration of the skin near the puncture site is common. * You may shower only, no bathtub bathing for 5 days. Be careful to avoid slipping as your leg may feel stiff. * If a closure device was used on your femoral artery, please see the attached guide regarding care of the device and your leg. * Leave dressing on FOR 24 hours. CARE OF YOUR WRIST INCISION; * Bruising or purple discoloration of the skin near the puncture site is common. * You may shower. * DO NOT submerge wrist. * Leave dressing on FOR 24 hours. ALEIDA ALVARADO MD Jun 16, 2022 13:34
--- NOTE | 2022-06-16 13:40 | Cardiac Cath Report ---
Cardiac Cath Report Physician (s)/[employer] Consultant (s) Physician ALEIDA PETE MD Pre-Procedure Diagnosis Pre-Procedure Diagnosis: CAD Post-Procedure Note Procedure Start Date: Jun 16, 2022 Name of Procedure: Left heart catheterization Findings/Procedure Note PROCEDURE NOTE: 62 years old gentleman with history of recurrent chest pain, has an abnormal stress test, scheduled for cardiac catheterization possible PTCA. After explaining the procedure to the patient, all pros and cons were explained, all questions were answered. The patient signed the consent and then he was placed in the cardiac catheterization laboratory. Groin was prepped in SL fashion local anesthesia was used. Sheath placed in the right radial artery, I was unable to engage the right or left system due to the short ascending aorta. There was acute angle at the transition from the brachiocephalic artery to the aorta. After multiple attempts and changing catheter I decided to proceed with a groin access. 6 [place] sheath was placed in the right femoral artery, Yun right catheter was used to access right coronary system, I was unable to be engaged the left system with a Yun left catheter, used AL-1 and it was successful., Yun right catheter prolapsed to the left ventricular cavity. At the end of the procedure vascular band was placed on the wrist and closure device deployed in the groin FINDINGS: Hemodynamics LV 128/20, end-diastolic pressure of 20 Aorta 127/77 mean of 97 ANATOMY: Left Main has mild ostial disease nonobstructive disease Left Anterior Descending has mild disease at the mid LAD nonobstructive disease Left Circumflex has no significant obstructive disease Right Coronary Artery dominant artery with no obstructive disease LV Gram was not done, pressure was measured CONCLUSION: Mild disease at the ostial left main and mid LAD nonobstructive disease otherwise no significant obstructive disease Normal left ventricular end-diastolic pressure Fairly short ascending aorta I made accessing his coronary with a right radial access very challenging, procedure was done through the groin DISCUSSION AND RECOMMENDATION: Maximizing medical therapy is recommended no intervention is warranted Anesthesia Type: Conscious Sedation Estimated blood loss (mL): 30 ml Contrast Amount: 52 ml Total Radiation Dose: 812 mGy Post-Procedure Diagnosis Post-operative diagnosis: Chest pain Coronary artery disease Hypertension Hyperlipidemia ALEIDA PETE MD Jun 16, 2022 13:39
[2022-06-16] MEDS ORDERED: PATIENT MAY USE OWN MEDS, ALL PO SCH (13:45)
== END 2022-06-16 18:15 | disposition home or self-care (01) ==
LOC: CATH 10:40 → SDC 13:45 → CATH 18:15
PROVIDERS: ATTEND Internal Medicine Cardiovascular Disease
DX: I25.10 Atherosclerotic heart disease of native coronary artery without angina pectoris (principal); I10 Essential (primary) hypertension; E78.5 Hyperlipidemia, unspecified; E78.2 Mixed hyperlipidemia; I48.0 Paroxysmal atrial fibrillation; I47.1 Supraventricular tachycardia; K40.90 Unilateral inguinal hernia, without obstruction or gangrene, not specified as recurrent; E66.9 Obesity, unspecified; G47.33 Obstructive sleep apnea (adult) (pediatric); Z68.38 Body mass index [BMI] 38.0-38.9, adult; Z79.899 Other long term (current) drug therapy
CPT/HCPCS: 36140; 71045; 80053; 85027; 85610; 85730; 87081; 93005; 93458; C1760; C1894 ×2; 36415